=== PATIENT | male | born 1945 | race Caucasian/White ===

== ENCOUNTER 2021-01-28 11:36 | Inpatient (IN) | payer MEDICARE, OTHER ==
[2021-01-28] MEDS ORDERED: Sodium Chloride 0.9% 10 ML Syringe FLUSH PRN (12:17)
[2021-01-28] MEDS ORDERED: Sodium Chloride 0.9% 1,000 ML IV STA ×2 (12:25→13:50)
--- NOTE | 2021-01-28 12:34 | EDM.PDOC ---
ED HPI GENERAL MEDICAL PROBLEM - General Chief Complaint: Gastrointestinal Problem Stated Complaint: RECTAL BLEEDING Time Seen by Provider: 01/28/21 12:16 Source of Information: Reports: Patient, RN Notes Reviewed History Limitations: Reports: No Limitations - History of Present Illness INITIAL COMMENTS - FREE TEXT/NARRATIVE: Patient is a 75-year-old male presenting to the emergency department for evaluation with regards to having 2 very large episodes of bright red bloody stool. Symptoms began about 6 AM this morning. He is traveling through on his way home to [place] from [place]. States that he stopped in [place] which is about an hour and a half from here and this is when he had his last episode of bloody stool. He denies any abdominal pain but states that he is feeling increasingly weak and has some shortness of breath with exertion. He reports a history of diverticulosis. He has had 2 other episodes of bloody stools, however these resolved on their own. He states that he did not seek medical treatment for these. This episode is worse than the previous and he is concerned with regards to his weakness. His last colonoscopy was 6 to 7 years ago and at that time he was found to have the diverticulosis. He denies any abdominal pain, chest pain, fever, chills, nausea, or vomiting. He is currently on Plavix and aspirin for history of [place]. - Related Data Allergies Allergy/AdvReac Type Severity Reaction Status Date / Time No Known Allergies Allergy Verified 01/28/21 11:56 Home Meds: Home Meds Aspirin 81 mg PO DAILY 01/28/21 [History] Clopidogrel [Plavix] 75 mg PO DAILY 01/28/21 [History] Losartan Potassium 50 mg PO BEDTIME 01/28/21 [History] Nitroglycerin [Nitrostat] 0.4 mg SL ASDIRECTED PRN 01/28/21 [History] Simvastatin 40 mg PO BEDTIME 01/28/21 [History] Past Medical History Cardiovascular History: Reports: [place] Gastrointestinal History: Reports: Diverticulosis - Past Surgical History Cardiovascular Surgical History: Reports: Carotid Stents Social & Family History - Tobacco Use Tobacco Use Status *Q: Never Tobacco User - Recreational Drug Use Recreational Drug Use: No ED ROS GENERAL - Review of Systems Review Of Systems: See Below Constitutional: Reports: Weakness, Fatigue HEENT: Reports: No Symptoms Respiratory: Reports: No Symptoms Cardiovascular: Reports: No Symptoms. Denies: Chest Pain, Lightheadedness, Palpitations Endocrine: Reports: No Symptoms GI/Abdominal: Reports: Melena. Denies: Abdominal Pain, Nausea, Vomiting : Reports: No Symptoms Musculoskeletal: Reports: No Symptoms Skin: Reports: No Symptoms Neurological: Reports: No Symptoms Psychiatric: Reports: No Symptoms Hematologic/Lymphatic: Reports: No Symptoms Immunologic: Reports: No Symptoms ED EXAM, GI/ABD - Physical Exam Exam: See Below Exam Limited By: No Limitations General Appearance: Alert, WD/WN, No Apparent Distress Respiratory/Chest: No Respiratory Distress, Lungs Clear, Normal Breath Sounds, No Accessory Muscle Use, Chest Non-Tender Cardiovascular: Normal Peripheral Pulses, Regular Rate, Rhythm, No Edema, No Gallop, No JVD, No Murmur, No Rub GI/Abdominal Exam: Normal Bowel Sounds, Soft, Non-Tender, No Organomegaly, No Distention, No Abnormal Bruit, No Mass, Pelvis Stable Neurological: Alert, Oriented, CN II-XII Intact, Normal Cognition, Normal Gait, Normal Reflexes, No Motor/Sensory Deficits Psychiatric: Normal Affect, Normal Mood Skin Exam: Warm, Dry, Intact, Normal Color, No Rash #1 Interpretation EKG Date: 01/28/21 Time: 13:08 Rhythm: NSR Rate (Beats/Min): 77 [place]: Normal P-Wave: Present QRS: Normal ST-T: Normal QT: Normal EKG Interpretation Comments: Sinus rhythm at 77/min Poor R wave progression T wave flattening aVL, 3, V4, and V5-nonspecific Mildly decreased voltage limb leads EKG interpreted by Dr. Tony ROBERSON Course - Vital Signs Last Recorded V/S: Last Vital Signs Temp 97.5 F 01/28/21 14:27 Pulse 75 01/28/21 14:27 Resp 16 01/28/21 14:27 BP 134/87 01/28/21 14:27 Pulse Ox 99 01/28/21 14:43 Orthostatic Blood Pressure [ 50/26 Standing] Orthostatic Blood Pressure [ 116/75 Sitting] Orthostatic Blood Pressure [ 128/97 Supine] - Orders/Labs/Meds Orders: Active Orders 24 hr Category Date Time Status EKG Documentation Completion [RC] STAT Care 01/28/21 12:53 Active Orthostatic Vital Signs [RC] ASDIRECTED Care 01/28/21 12:28 Active Peripheral IV Care [RC] . DIRECTED Care 01/28/21 12:17 Active RED BLOOD CELLS LP [BBK] Stat Lab 01/28/21 12:05 Results TYPE AND SCREEN [BBK] Stat Lab 01/28/21 12:05 Results Sodium Chloride 0.9% [Saline Flush] Med 01/28/21 12:17 Active 10 ml FLUSH ASDIRECTED PRN Peripheral IV Insertion Adult [OM.PC] Stat Oth 01/28/21 12:16 Ordered Medication Orders Sodium Chloride (Normal Saline) 1,000 mls @ 125 mls/hr IV NOW STA Stop: 01/28/21 21:49 Last Admin: 01/28/21 14:10 Dose: 125 mls/hr Documented by: AUBRIE Sodium Chloride (Normal Saline) 1,000 mls @ 150 mls/hr IV ASDIRECTED SENAIT Sodium Chloride (Sodium Chloride 0.9% 10 Ml Syringe) 10 ml FLUSH ASDIRECTED PRN PRN Reason: Keep Vein Open Last Admin: 01/28/21 12:05 Dose: 10 ml Documented by: DHRUV Labs: Laboratory Tests 01/28/21 01/28/21 01/28/21 Range/Units 12:05 12:05 12:05 WBC 8.92 (4.23-9.07) K/mm3 RBC 4.37 L (4.63-6.08) M/mm3 Hgb 12.8 L (13.7-17.5) gm/dl Hct 38.4 L (40.1-51.0) % MCV 87.9 (79.0-92.2) fl MCH 29.3 (25.7-32.2) pg MCHC 33.3 (32.2-35.5) g/dl RDW Std Deviation 42.1 (35.1-43.9) fL Plt Count 226 (163-337) K/mm3 MPV 9.4 (9.4-12.3) fl Neut % (Auto) 88.4 H (34.0-67.9) % Lymph % (Auto) 5.7 L (21.8-53.1) % [place] % (Auto) 4.7 L (5.3-12.2) % Eos % (Auto) 0.8 (0.8-7.0) Baso % (Auto) 0.3 (0.1-1.2) % Neut # (Auto) 7.88 H (1.78-5.38) K/mm3 Lymph # (Auto) 0.51 L (1.32-3.57) K/mm3 [place] # (Auto) 0.42 (0.30-0.82) K/mm3 Eos # (Auto) 0.07 (0.04-0.54) K/mm3 Baso # (Auto) 0.03 (0.01-0.08) K/mm3 Manual Slide Review Abnormal smear PT 11.3 (9.7-12.0) SECONDS INR 1.06 APTT (21.7-31.4) SECONDS Sodium 141 (136-145) mEq/L Potassium 4.1 (3.5-5.1) mEq/L Chloride 107 (98-107) mEq/L Carbon Dioxide 25 (21-32) mEq/L Anion Gap 12.1 (5-15) BUN 16 (7-18) mg/dL Creatinine 1.8 H (0.7-1.3) mg/dL Est Cr Clr Drug Dosing 38.84 mL/min Estimated GFR (MDRD) 37 (>60) mL/min BUN/Creatinine Ratio 8.9 L (14-18) Glucose 175 H (83-115) mg/dL Calcium 8.5 (8.5-10.1) mg/dL Total Bilirubin 0.6 (0.2-1.0) mg/dL AST 14 L (15-37) U/L ALT 23 (16-63) U/L Alkaline Phosphatase 52 (46-116) U/L Troponin I < 0.017 (0.00-0.056) ng/mL C-Reactive Protein < 0.2 (<1.0) mg/dL Total Protein 6.1 L (6.4-8.2) g/dl Albumin 3.6 (3.4-5.0) g/dl Globulin 2.5 gm/dL Albumin/Globulin Ratio 1.4 (1-2) SARS-CoV-2 RNA (YONI) (NEGATIVE) Blood Type Gel Antibody Screen Crossmatch 01/28/21 01/28/21 01/28/21 Range/Units 12:05 12:05 12:33 WBC (4.23-9.07) K/mm3 RBC (4.63-6.08) M/mm3 Hgb (13.7-17.5) gm/dl Hct (40.1-51.0) % MCV (79.0-92.2) fl MCH (25.7-32.2) pg MCHC (32.2-35.5) g/dl RDW Std Deviation (35.1-43.9) fL Plt Count (163-337) K/mm3 MPV (9.4-12.3) fl Neut % (Auto) (34.0-67.9) % Lymph % (Auto) (21.8-53.1) % [place]ay % (Auto) (5.3-12.2) % Eos % (Auto) (0.8-7.0) Baso % (Auto) (0.1-1.2) % Neut # (Auto) (1.78-5.38) K/mm3 Lymph # (Auto) (1.32-3.57) K/mm3 [place] # (Auto) (0.30-0.82) K/mm3 Eos # (Auto) (0.04-0.54) K/mm3 Baso # (Auto) (0.01-0.08) K/mm3 Manual Slide Review PT (9.7-12.0) SECONDS INR APTT 21.5 L (21.7-31.4) SECONDS Sodium (136-145) mEq/L Potassium (3.5-5.1) mEq/L Chloride (98-107) mEq/L Carbon Dioxide (21-32) mEq/L Anion Gap (5-15) BUN (7-18) mg/dL Creatinine (0.7-1.3) mg/dL Est Cr Clr Drug Dosing mL/min Estimated GFR (MDRD) (>60) mL/min BUN/Creatinine Ratio (14-18) Glucose (83-115) mg/dL Calcium (8.5-10.1) mg/dL Total Bilirubin (0.2-1.0) mg/dL AST (15-37) U/L ALT (16-63) U/L Alkaline Phosphatase (46-116) U/L Troponin I (0.00-0.056) ng/mL C-Reactive Protein (<1.0) mg/dL Total Protein (6.4-8.2) g/dl Albumin (3.4-5.0) g/dl Globulin gm/dL Albumin/Globulin Ratio (1-2) SARS-CoV-2 RNA (YONI) Negative (NEGATIVE) Blood Type O POSITIVE Gel Antibody Screen Negative Crossmatch See Detail Meds: Medications Generic Name Dose Route Start Last Admin Trade Name Abel PRN Reason Stop Dose Admin Sodium Chloride 1,000 mls @ 125 mls/hr 01/28/21 13:50 01/28/21 14:10 Normal Saline IV 01/28/21 21:49 125 mls/hr NOW STA Administration Sodium Chloride 1,000 mls @ 150 mls/hr 01/28/21 18:00 Normal Saline IV ASDIRECTED SENAIT Sodium Chloride 10 ml 01/28/21 12:17 01/28/21 12:05 Sodium Chloride 0.9% 10 Ml Syringe FLUSH 10 ml ASDIRECTED PRN Administration Keep Vein Open Discontinued Medications Generic Name Dose Route Start Last Admin Trade Name Abel PRN Reason Stop Dose Admin Sodium Chloride 1,000 mls @ 999 mls/hr 01/28/21 12:25 01/28/21 12:38 Normal Saline IV 01/28/21 13:25 125 mls/hr NOW STA Administration Sodium Chloride 1,000 mls @ 250 mls/hr 01/28/21 14:56 01/28/21 15:45 Normal Saline IV 01/28/21 18:55 Not Given ONETIME ONE - Re-Assessments/Exams Free Text/Narrative Re-Assessment/Exam: Patient is a 75-year-old male presenting to the emergency department for evaluation with regards to having 2 large james red bloody stools this morning. He reports subsequently he became weak and short of breath with exertion. He d enies any abdominal pain, chest pain, or shortness of breath at rest. Patient reports that he has a history of diverticulosis which was diagnosed on colonoscopy 6 to 7 years ago. He has not had any colonoscopy repeated since that time. He reports a history of 2 previous GI bleeds that resolved spontaneously and he did not seek medical treatment for these. Exam is grossly unremarkable. He has no abdominal tenderness. I have ordered blood work including CBC, CMP, CRP, PT/INR, APTT, troponin, urinalysis, orthostatic vital signs. Blood pressures on triage were stable. I will start IV fluids of normal saline at 125 ml/hr. 01/28/21 12:30 Patient was found to be severely orthostatic. Blood pressure decreased from 120/97 with a pulse of 77 lying to 50/26 with a pulse of 105. I have ordered a bolus of 1 L of normal saline. 01/28/21 13:26 Hematology was significant for a hemoglobin slightly low at 12.8 and creatinine elevated at 1.8. Hematology was otherwise unremarkable. Patient is significantly volume depleted, therefore once replaced the volume with fluids, his hemoglobin is likely going to drop significantly. Case was discussed with general surgeon on-call, Dr. Manley. She recommended admission under medical services for monitoring and supportive care to see if the bleeding improves or resolves. She will see him in consult. Case was discussed with hospitalist, Dr. De La Rosa. He has accepted the patient for admission. Requested 2 units of packed RBCs to be crossmatched. Patient is in agreement with this plan. Departure - Departure Time of Disposition: 13:26 Disposition: Admitted As Inpatient 64 Condition: Good Clinical Impression: Hypotension due to blood loss, Rectal hemorrhage - Discharge Information Sepsis Event Note (ED) - Evaluation Sepsis Screening Result: No Definite Risk - Focused Exam Vital Signs: Vital Signs Temp Pulse Resp BP Pulse Ox 01/28/21 11:53 98.4 F 90 16 129/89 99 - My Orders Last 24 Hours: My Active Orders 01/28/21 12:05 RED BLOOD CELLS LP [BBK] Stat TYPE AND SCREEN [BBK] Stat 01/28/21 12:16 Peripheral IV Insertion Adult [OM.PC] Stat 01/28/21 12:17 Peripheral IV Care [RC] . DIRECTED Sodium Chloride 0.9% [Saline Flush] 10 ml FLUSH ASDIRECTED PRN 01/28/21 12:28 Orthostatic Vital Signs [RC] ASDIRECTED 01/28/21 12:53 EKG Documentation Completion [RC] STAT - Assessment/Plan Last 24 Hours: My Active Orders 01/28/21 12:05 RED BLOOD CELLS LP [BBK] Stat TYPE AND SCREEN [BBK] Stat 01/28/21 12:16 Peripheral IV Insertion Adult [OM.PC] Stat 01/28/21 12:17 Peripheral IV Care [RC] . DIRECTED Sodium Chloride 0.9% [Saline Flush] 10 ml FLUSH ASDIRECTED PRN 01/28/21 12:28 Orthostatic Vital Signs [RC] ASDIRECTED 01/28/21 12:53 EKG Documentation Completion [RC] STAT
--- NOTE | 2021-01-28 14:25 | PCM.HP.2 ---
H&P History of Present Illness - General Date of Service: 01/28/21 Admit Problem/Dx: Admission Diagnosis/Problem Admission Diagnosis/Problem GI bleed not requiring more than 4 units of blood in 24 hours, ICU, or surgery Source of Information: Patient, Family, Provider History Limitations: Reports: No Limitations - History of Present Illness Initial Comments - Free Text/Narative: Patient is a 75-year-old male presenting to the emergency department for evaluation with regards to having 2 very large episodes of bright red bloody stool. Symptoms began about 6 AM this morning. He is traveling through on his way home to [place] from [place]. States that he stopped in [place] which is about an hour and a half from here and this is when he had his last episode of bloody stool. He denies any abdominal pain but states that he is feeling increasingly weak and has some shortness of breath with exertion. He reports a history of diverticulosis. He has had 2 other episodes of bloody stools, however these resolved on their own. He states that he did not seek medical treatment for these. This episode is worse than the previous and he is concerned with regards to his weakness. His last colonoscopy was 6 to 7 years ago and at that time he was found to have the diverticulosis. He denies any abdominal pain, chest pain, fever, chills, nausea, or vomiting. He is currently on Plavix and aspirin for history of [place]. Patient does not have any hx of colon polyps known and did have cologard test 2 years ago. hx of mild bruising and no other recent bleeds. known anterior mi with decreased e.f now back to near normal functionally he states. no hx of afib cva or p.e,low platlets or chronic anemia . no hx of intracranial bleeding. remote mild hx of smoking but no copd . otherwise healthy . no dementia ,cancer and minimal prostate issues (bph) no hx of hepatitis ,drug use , increased etoh use. - Related Data Allergies Allergy/AdvReac Type Severity Reaction Status Date / Time No Known Allergies Allergy Verified 01/28/21 11:56 Home Meds: Home Meds Aspirin 81 mg PO DAILY 01/28/21 [History] Clopidogrel [Plavix] 75 mg PO DAILY 01/28/21 [History] Losartan Potassium 50 mg PO BEDTIME 01/28/21 [History] Nitroglycerin [Nitrostat] 0.4 mg SL ASDIRECTED PRN 01/28/21 [History] Simvastatin 40 mg PO BEDTIME 01/28/21 [History] Onset of Symptoms: Reports: Today Duration of Symptoms: Reports: Hour(s): (8) Location: Reports: Abdomen Quality: Reports: Other (no abd pain ) Improves with: Reports: None Worsens with: Reports: None Context: Denies: Sick Contact Associated Symptoms: Denies: No Other Symptoms - Related Data Allergies/Adverse Reactions: Allergies Allergy/AdvReac Type Severity Reaction Status Date / Time No Known Allergies Allergy Verified 01/28/21 11:56 Home Medications: Home Meds Aspirin 81 mg PO DAILY 01/28/21 [History] Clopidogrel [Plavix] 75 mg PO DAILY 01/28/21 [History] Losartan Potassium 50 mg PO BEDTIME 01/28/21 [History] Nitroglycerin [Nitrostat] 0.4 mg SL ASDIRECTED PRN 01/28/21 [History] Simvastatin 40 mg PO BEDTIME 01/28/21 [History] Past Medical History Cardiovascular History: Reports: CAD, [place]. Denies: Afib, Aneurysm, Arrhythmia, Blood Clots/VTE/DVT, Heart Failure, Heart Murmur Gastrointestinal History: Reports: Diverticulosis Musculoskeletal History: Reports: Osteoarthritis Neurological History: Reports: None Psychiatric History: Reports: None Endocrine/Metabolic History: Reports: None Hematologic History: Reports: None Oncologic (Cancer) History: Reports: None Dermatologic History: Reports: None - Infectious Disease History Infectious Disease History: Reports: None - Past Surgical History Cardiovascular Surgical History: Reports: Carotid Stents Social & Family History - Tobacco Use Tobacco Use Status *Q: Never Tobacco User - Recreational Drug Use Recreational Drug Use: No - Living Situation & Occupation Living situation: Reports: H&P Review of Systems - Review of Systems: Review Of Systems: See Below General: Reports: No Symptoms Pulmonary: Reports: Shortness of Breath Cardiovascular: Reports: No Symptoms. Denies: Chest Pain Gastrointestinal: Reports: Bloody Stool. Denies: Abdominal Pain, Anorexia, Black Stool, Hematochezia Genitourinary: Reports: Frequency Musculoskeletal: Reports: No Symptoms Skin: Reports: No Symptoms Psychiatric: Reports: No Symptoms Neurological: Reports: No Symptoms Hematologic/Lymphatic: Reports: No Symptoms Immunologic: Reports: No Symptoms Exam - Exam Exam: See Below - Vital Signs Vital Signs: Last Vital Signs Temp 36.9 C 01/28/21 11:53 Pulse 90 01/28/21 11:53 Resp 16 01/28/21 11:53 BP 129/89 01/28/21 11:53 Pulse Ox 99 01/28/21 11:53 Orthostatic Blood Pressure [ 50/26 Standing] Orthostatic Blood Pressure [ 116/75 Sitting] Orthostatic Blood Pressure [ 128/97 Supine] Weight: 94.347 kg - Exam General: Alert, Oriented, Cooperative HEENT: PERRLA, Hearing Intact, Mucosa Moist & [place], Nares Patent, Normal Nasal Septum, Posterior Pharynx Clear, Conjunctiva Clear, EOMI, EACs Clear, TMs Clear Neck: Supple, Trachea Midline, 2 Lungs: Clear to Auscultation, Normal Respiratory Effort Cardiovascular: Regular Rate, Regular Rhythm GI/Abdominal Exam: Normal Bowel Sounds, Soft, Non-Tender, No Organomegaly, No Distention, No Abnormal Bruit, No Mass, Pelvis Stable (Male) Exam: Deferred Rectal (Males) Exam: Deferred Back Exam: Normal Inspection Extremities: Normal Inspection Peripheral Pulses: 1+: Carotid (L), Carotid (R) Skin: Warm, Dry, Intact, Ecchymosis (few normal appearing ecchymosis) Neurological: Cranial Nerves Intact, Reflexes Equal Bilateral Neuro Extensive - Mental Status: Alert, Oriented x3, Normal Mood/Affect, Normal Cognition Neuro Extensive - Motor, Sensory, Reflexes: CN II-XII Intact, Normal Gait, Normal Reflexes Psychiatric: Alert, Normal Affect, Normal Mood - Patient Data Lab Results Last 24 hrs: Laboratory Results - last 24 hr 01/28/21 01/28/21 01/28/21 Range/Units 12:05 12:05 12:05 WBC 8.92 (4.23-9.07) K/mm3 RBC 4.37 L (4.63-6.08) M/mm3 Hgb 12.8 L (13.7-17.5) gm/dl Hct 38.4 L (40.1-51.0) % MCV 87.9 (79.0-92.2) fl MCH 29.3 (25.7-32.2) pg MCHC 33.3 (32.2-35.5) g/dl RDW Std Deviation 42.1 (35.1-43.9) fL Plt Count 226 (163-337) K/mm3 MPV 9.4 (9.4-12.3) fl Neut % (Auto) 88.4 H (34.0-67.9) % Lymph % (Auto) 5.7 L (21.8-53.1) % [place] % (Auto) 4.7 L (5.3-12.2) % Eos % (Auto) 0.8 (0.8-7.0) Baso % (Auto) 0.3 (0.1-1.2) % Neut # (Auto) 7.88 H (1.78-5.38) K/mm3 Lymph # (Auto) 0.51 L (1.32-3.57) K/mm3 [place] # (Auto) 0.42 (0.30-0.82) K/mm3 Eos # (Auto) 0.07 (0.04-0.54) K/mm3 Baso # (Auto) 0.03 (0.01-0.08) K/mm3 Manual Slide Review Abnormal smear PT 11.3 (9.7-12.0) SECONDS INR 1.06 APTT (21.7-31.4) SECONDS Sodium 141 (136-145) mEq/L Potassium 4.1 (3.5-5.1) mEq/L Chloride 107 (98-107) mEq/L Carbon Dioxide 25 (21-32) mEq/L Anion Gap 12.1 (5-15) BUN 16 (7-18) mg/dL Creatinine 1.8 H (0.7-1.3) mg/dL Est Cr Clr Drug Dosing 38.84 mL/min Estimated GFR (MDRD) 37 (>60) mL/min BUN/Creatinine Ratio 8.9 L (14-18) Glucose 175 H (83-115) mg/dL Calcium 8.5 (8.5-10.1) mg/dL Total Bilirubin 0.6 (0.2-1.0) mg/dL AST 14 L (15-37) U/L ALT 23 (16-63) U/L Alkaline Phosphatase 52 (46-116) U/L Troponin I < 0.017 (0.00-0.056) ng/mL C-Reactive Protein < 0.2 (<1.0) mg/dL Total Protein 6.1 L (6.4-8.2) g/dl Albumin 3.6 (3.4-5.0) g/dl Globulin 2.5 gm/dL Albumin/Globulin Ratio 1.4 (1-2) SARS-CoV-2 RNA (YONI) (NEGATIVE) Blood Type Gel Antibody Screen Crossmatch 01/28/21 01/28/21 01/28/21 Range/Units 12:05 12:05 12:33 WBC (4.23-9.07) K/mm3 RBC (4.63-6.08) M/mm3 Hgb (13.7-17.5) gm/dl Hct (40.1-51.0) % MCV (79.0-92.2) fl MCH (25.7-32.2) pg MCHC (32.2-35.5) g/dl RDW Std Deviation (35.1-43.9) fL Plt Count (163-337) K/mm3 MPV (9.4-12.3) fl Neut % (Auto) (34.0-67.9) % Lymph % (Auto) (21.8-53.1) % [place] % (Auto) (5.3-12.2) % Eos % (Auto) (0.8-7.0) Baso % (Auto) (0.1-1.2) % Neut # (Auto) (1.78-5.38) K/mm3 Lymph # (Auto) (1.32-3.57) K/mm3 [place] # (Auto) (0.30-0.82) K/mm3 Eos # (Auto) (0.04-0.54) K/mm3 Baso # (Auto) (0.01-0.08) K/mm3 Manual Slide Review PT (9.7-12.0) SECONDS INR APTT 21.5 L (21.7-31.4) SECONDS Sodium (136-145) mEq/L Potassium (3.5-5.1) mEq/L Chloride (98-107) mEq/L Carbon Dioxide (21-32) mEq/L Anion Gap (5-15) BUN (7-18) mg/dL Creatinine (0.7-1.3) mg/dL Est Cr Clr Drug Dosing mL/min Estimated GFR (MDRD) (>60) mL/min BUN/Creatinine Ratio (14-18) Glucose (83-115) mg/dL Calcium (8.5-10.1) mg/dL Total Bilirubin (0.2-1.0) mg/dL AST (15-37) U/L ALT (16-63) U/L Alkaline Phosphatase (46-116) U/L Troponin I (0.00-0.056) ng/mL C-Reactive Protein (<1.0) mg/dL Total Protein (6.4-8.2) g/dl Albumin (3.4-5.0) g/dl Globulin gm/dL Albumin/Globulin Ratio (1-2) SARS-CoV-2 RNA (YONI) Negative (NEGATIVE) Blood Type O POSITIVE Gel Antibody Screen Negative Crossmatch See Detail Result Diagrams: 01/28/21 12:05 01/28/21 12:05 Sepsis Event Note - Evaluation Sepsis Screening Result: No Definite Risk - Focused Exam Vital Signs: Vital Signs Temp Pulse Resp BP Pulse Ox 01/28/21 11:53 36.9 C 90 16 129/89 99 - Problem List (1) Rectal hemorrhage SNOMED Code(s): 69062228 ICD Code: K62.5 - HEMORRHAGE OF ANUS AND RECTUM Status: Acute Priority: High Current Visit: Yes Onset Date: ~01/28/21 Problem Details: initial e.r hgn 11.7 and gibven i.v x 2 liters for orthostsis and will repeat hgn every 4-6 hours. he would like to get home [place]s.p. and discussed stopping plavix and asa and observing next few days . consult gen surgery if bleeding continues. (2) CAD (coronary atherosclerotic disease) SNOMED Code(s): 369829030 ICD Code: I25.10 - ATHSCL HEART DISEASE OF [place] CORONARY ARTERY W/O ANG PCTRS Status: Acute Priority: Medium Current Visit: Yes Onset Date: ~01/28/21 Problem Details: ekg reviewed and no acute findings, occasional verification manager and will avoid hypotension and severe anemia . type and screened for 2 units given he is on plavix and asa and has previous bleeds x 2. given slow reversal of these agents observation and repeat hgn with orthostatic b.p in order. Qualifiers: Coronary Disease-Associated Artery/Lesion type: due to lipid rich plaque Qualified Code(s): I25.10 - Atherosclerotic heart disease of [place] coronary artery without angina pectoris; I25.83 - Coronary atherosclerosis due to lipid rich plaque (3) Hypotension due to blood loss SNOMED Code(s): 70018545 ICD Code: I95.89 - OTHER HYPOTENSION Status: Acute Priority: Medium Current Visit: Yes Onset Date: ~01/28/21 Problem Details: b.p normal currently but orthostatic on presentation with dizziness and [place]. (4) MEYERS (dyspnea on exertion) SNOMED Code(s): 53018928 ICD Code: R06.00 - DYSPNEA, UNSPECIFIED Status: Acute Priority: Medium Current Visit: Yes Onset Date: ~01/28/21 Problem Details: mild sats 96- 100 currently Problem List Initiated/Reviewed/Updated: Yes Orders Last 24hrs: Active Orders 24 hr Category Date Time Status Patient Status [ADT] Routine ADT 01/28/21 13:41 Active EKG Documentation Completion [RC] STAT Care 01/28/21 12:53 Active Orthostatic Vital Signs [RC] ASDIRECTED Care 01/28/21 12:28 Active Peripheral IV Care [RC] . DIRECTED Care 01/28/21 12:17 Active PATIENT RETYPE [BBK] Routine Lab 01/28/21 13:22 Ordered RED BLOOD CELLS LP [BBK] Stat Lab 01/28/21 12:05 Results TYPE AND SCREEN [BBK] Stat Lab 01/28/21 12:05 Results UA W/MICROSCOPIC [URIN] Stat Lab 01/28/21 12:16 Ordered Sodium Chloride 0.9% [Normal Saline] 1,000 ml Med 01/28/21 13:50 Active IV NOW Sodium Chloride 0.9% [Saline Flush] Med 01/28/21 12:17 Active 10 ml FLUSH ASDIRECTED PRN Peripheral IV Insertion Adult [OM.PC] Stat Oth 01/28/21 12:16 Ordered Medication Orders Sodium Chloride (Normal Saline) 1,000 mls @ 125 mls/hr IV NOW STA Stop: 01/28/21 21:49 Last Admin: 01/28/21 14:10 Dose: 125 mls/hr Documented by: AUBRIE Sodium Chloride (Sodium Chloride 0.9% 10 Ml Syringe) 10 ml FLUSH ASDIRECTED PRN PRN Reason: Keep Vein Open Last Admin: 01/28/21 12:05 Dose: 10 ml Documented by: DHRUV Assessment/Plan Comment:: 01/28/21 plan: admit / observe and serial hgn with attn to vs. stop plavix and asa and discussed with duaghter and patient and they agree. cont n.p.o . for now. surgery consult . diverticular eval when stable , preferably with his hometown [facility] - Mortality Measure Prognosis:: Good
[2021-01-28] MEDS ORDERED: Sodium Chloride 0.9% 1,000 ML IV ONE (14:56)
--- NOTE | 2021-01-28 15:45 | PCM.CONS ---
H&P History of Present Illness - General Date of Service: 01/28/21 Admit Problem/Dx: Admission Diagnosis/Problem Admission Diagnosis/Problem GI bleed not requiring more than 4 units of blood in 24 hours, ICU, or surgery Source of Information: Patient, Provider - History of Present Illness Initial Comments - Free Text/Narative: 75 y/o gentleman presents to the ED with GI bleed. He reports having two large, bloody bowel movements today, after which he felt very weak. He reports having two prior events of GI bleed within the last 18 months. His last colonoscopy was 6-7 years ago, maybe longer. He reports having previously diagnosed diverticulosis. He has not had any follow up colonoscopy since the bleeding episodes started. He would like to go home to the [facility] for colonoscopy evaluation if possible. He denies abdominal pain. - Related Data Allergies/Adverse Reactions: Allergies Allergy/AdvReac Type Severity Reaction Status Date / Time No Known Allergies Allergy Verified 01/28/21 11:56 Home Medications: Home Meds Aspirin 81 mg PO DAILY 01/28/21 [History] Clopidogrel [Plavix] 75 mg PO DAILY 01/28/21 [History] Losartan Potassium 50 mg PO BEDTIME 01/28/21 [History] Nitroglycerin [Nitrostat] 0.4 mg SL ASDIRECTED PRN 01/28/21 [History] Simvastatin 40 mg PO BEDTIME 01/28/21 [History] Past Medical History HEENT History: Reports: Cataract Cardiovascular History: Reports: CAD, ND. Denies: Afib, Aneurysm, Arrhythmia, Blood Clots/VTE/DVT, Heart Failure, Heart Murmur Gastrointestinal History: Reports: Diverticulosis, GI Bleed Musculoskeletal History: Reports: Osteoarthritis Neurological History: Reports: None Psychiatric History: Reports: None Endocrine/Metabolic History: Reports: None Hematologic History: Reports: None Oncologic (Cancer) History: Reports: None Dermatologic History: Reports: None - Infectious Disease History Infectious Disease History: Reports: None - Past Surgical History Cardiovascular Surgical History: Reports: Carotid Stents Social & Family History - Family History Cardiac: Reports: CAD - Tobacco Use Tobacco Use Status *Q: Never Tobacco User Second Hand Smoke Exposure: No - Caffeine Use Caffeine Use: Reports: Coffee, Tea - Recreational Drug Use Recreational Drug Use: No - Living Situation & Occupation Living situation: Reports: H&P Review of Systems - Review of Systems: Review Of Systems: See Below General: Reports: Weakness HEENT: Reports: No Symptoms Pulmonary: Reports: Shortness of Breath Cardiovascular: Reports: No Symptoms Gastrointestinal: Reports: Bloody Stool Genitourinary: Reports: No Symptoms Musculoskeletal: Reports: No Symptoms Skin: Reports: No Symptoms Neurological: Reports: No Symptoms Hematologic/Lymphatic: Reports: No Symptoms Exam - Exam Exam: See Below - Vital Signs Vital Signs: Last Vital Signs Temp 36.4 C 01/28/21 14:27 Pulse 75 01/28/21 14:27 Resp 16 01/28/21 14:27 BP 134/87 01/28/21 14:27 Pulse Ox 99 01/28/21 14:27 Orthostatic Blood Pressure [ 50/26 Standing] Orthostatic Blood Pressure [ 116/75 Sitting] Orthostatic Blood Pressure [ 128/97 Supine] Weight: 94.347 kg - Exam Quality Assessment: No: Supplemental Oxygen General: Alert, Oriented HEENT: EOMI Neck: Supple Lungs: Normal Respiratory Effort GI/Abdominal Exam: Soft, Non-Tender, No Distention Extremities: Normal Inspection, No Pedal Edema Peripheral Pulses: 2+: Dorsalis Pedis (L), Dorsalis Pedis (R) Neurological: Cranial Nerves Intact Neuro Extensive - Mental Status: Normal Mood/Affect - Patient Data Lab Results Last 24 hrs: Laboratory Results - last 24 hr 01/28/21 01/28/21 01/28/21 Range/Units 12:05 12:05 12:05 WBC 8.92 (4.23-9.07) K/mm3 RBC 4.37 L (4.63-6.08) M/mm3 Hgb 12.8 L (13.7-17.5) gm/dl Hct 38.4 L (40.1-51.0) % MCV 87.9 (79.0-92.2) fl MCH 29.3 (25.7-32.2) pg MCHC 33.3 (32.2-35.5) g/dl RDW Std Deviation 42.1 (35.1-43.9) fL Plt Count 226 (163-337) K/mm3 MPV 9.4 (9.4-12.3) fl Neut % (Auto) 88.4 H (34.0-67.9) % Lymph % (Auto) 5.7 L (21.8-53.1) % [place] % (Auto) 4.7 L (5.3-12.2) % Eos % (Auto) 0.8 (0.8-7.0) Baso % (Auto) 0.3 (0.1-1.2) % Neut # (Auto) 7.88 H (1.78-5.38) K/mm3 Lymph # (Auto) 0.51 L (1.32-3.57) K/mm3 [place] # (Auto) 0.42 (0.30-0.82) K/mm3 Eos # (Auto) 0.07 (0.04-0.54) K/mm3 Baso # (Auto) 0.03 (0.01-0.08) K/mm3 Manual Slide Review Abnormal smear PT 11.3 (9.7-12.0) SECONDS INR 1.06 APTT (21.7-31.4) SECONDS Sodium 141 (136-145) mEq/L Potassium 4.1 (3.5-5.1) mEq/L Chloride 107 (98-107) mEq/L Carbon Dioxide 25 (21-32) mEq/L Anion Gap 12.1 (5-15) BUN 16 (7-18) mg/dL Creatinine 1.8 H (0.7-1.3) mg/dL Est Cr Clr Drug Dosing 38.84 mL/min Estimated GFR (MDRD) 37 (>60) mL/min BUN/Creatinine Ratio 8.9 L (14-18) Glucose 175 H (83-115) mg/dL Calcium 8.5 (8.5-10.1) mg/dL Total Bilirubin 0.6 (0.2-1.0) mg/dL AST 14 L (15-37) U/L ALT 23 (16-63) U/L Alkaline Phosphatase 52 (46-116) U/L Troponin I < 0.017 (0.00-0.056) ng/mL C-Reactive Protein < 0.2 (<1.0) mg/dL Total Protein 6.1 L (6.4-8.2) g/dl Albumin 3.6 (3.4-5.0) g/dl Globulin 2.5 gm/dL Albumin/Globulin Ratio 1.4 (1-2) SARS-CoV-2 RNA (YONI) (NEGATIVE) Blood Type Gel Antibody Screen Crossmatch 01/28/21 01/28/21 01/28/21 Range/Units 12:05 12:05 12:33 WBC (4.23-9.07) K/mm3 RBC (4.63-6.08) M/mm3 Hgb (13.7-17.5) gm/dl Hct (40.1-51.0) % MCV (79.0-92.2) fl MCH (25.7-32.2) pg MCHC (32.2-35.5) g/dl RDW Std Deviation (35.1-43.9) fL Plt Count (163-337) K/mm3 MPV (9.4-12.3) fl Neut % (Auto) (34.0-67.9) % Lymph % (Auto) (21.8-53.1) % [place] % (Auto) (5.3-12.2) % Eos % (Auto) (0.8-7.0) Baso % (Auto) (0.1-1.2) % Neut # (Auto) (1.78-5.38) K/mm3 Lymph # (Auto) (1.32-3.57) K/mm3 [place] # (Auto) (0.30-0.82) K/mm3 Eos # (Auto) (0.04-0.54) K/mm3 Baso # (Auto) (0.01-0.08) K/mm3 Manual Slide Review PT (9.7-12.0) SECONDS INR APTT 21.5 L (21.7-31.4) SECONDS Sodium (136-145) mEq/L Potassium (3.5-5.1) mEq/L Chloride (98-107) mEq/L Carbon Dioxide (21-32) mEq/L Anion Gap (5-15) BUN (7-18) mg/dL Creatinine (0.7-1.3) mg/dL Est Cr Clr Drug Dosing mL/min Estimated GFR (MDRD) (>60) mL/min BUN/Creatinine Ratio (14-18) Glucose (83-115) mg/dL Calcium (8.5-10.1) mg/dL Total Bilirubin (0.2-1.0) mg/dL AST (15-37) U/L ALT (16-63) U/L Alkaline Phosphatase (46-116) U/L Troponin I (0.00-0.056) ng/mL C-Reactive Protein (<1.0) mg/dL Total Protein (6.4-8.2) g/dl Albumin (3.4-5.0) g/dl Globulin gm/dL Albumin/Globulin Ratio (1-2) SARS-CoV-2 RNA (YONI) Negative (NEGATIVE) Blood Type O POSITIVE Gel Antibody Screen Negative Crossmatch See Detail Result Diagrams: 01/28/21 15:47 01/28/21 15:47 Sepsis Event Note - Evaluation Sepsis Screening Result: No Definite Risk - Focused Exam Vital Signs: Vital Signs Temp Temp Pulse Pulse Resp BP BP 01/28/21 14:27 36.4 C 75 16 134/87 01/28/21 14:20 78 16 128/87 01/28/21 11:53 36.9 C 90 16 129/89 Pulse Ox 01/28/21 14:27 99 01/28/21 14:20 99 01/28/21 11:53 99 Consult PN Assessment/Plan (1) Hypotension due to blood loss SNOMED Code(s): 64018012 Code(s): I95.89 - OTHER HYPOTENSION Priority: Medium Current Visit: Yes Onset Date: ~01/28/21 Comment: b.p normal currently but orthostatic on presentation with dizziness and gunn. (2) Rectal hemorrhage SNOMED Code(s): 23491794 Code(s): K62.5 - HEMORRHAGE OF ANUS AND RECTUM Priority: High Current Visit: Yes Onset Date: ~01/28/21 Comment: initial e.r hgn 11.7 and gibven i.v x 2 liters for orthostsis and will repeat hgn every 4-6 hours. he would like to get home to [place]s.p. and discussed stopping plavix and asa and observing next few days . consult gen surgery if bleeding continues. Problem List Initiated/Reviewed/Updated: Yes Plan: 75 y/o male with lower GI bleed - trend Hg every 4-6 hours - NPO until hemoglobin stable for 8-12 hours - plan for colonoscopy as outpatient if hg stabilized - medical management per primary Sweta Lazcano MD General surgery
[2021-01-28] MEDS ORDERED: Sodium Chloride 0.9% 1,000 ML IV SCH (18:00)
[2021-01-29] MEDS ORDERED: Sodium Chloride 0.9% 250 ML IV SCH (02:45)
--- NOTE | 2021-01-29 09:07 | CR ---
Chest: Portable view of the chest was obtained. Comparison: No previous chest imaging is available. Slight density is noted within the lateral left costophrenic angle. Lungs otherwise are clear. Heart size and mediastinum are normal. Scattered degenerative endplate spurring and disc space narrowing is seen within the spine. Minimal scoliosis is noted. Impression: 1. Slight density within the lateral left costophrenic angle most likely due to atelectasis or slight scarring. 2. Nothing acute is otherwise seen. Diagnostic code #2
[2021-01-29] MEDS ORDERED: Bisacodyl 5 MG Tab PO ONE (10:01)
[2021-01-29] MEDS ORDERED: Polyethylene Glycol 3350 Powder 17 GM Packet PO ONE ×2 (10:02→14:00)
--- NOTE | 2021-01-29 10:14 | PCM.CONSN ---
- General Info Date of Service: 01/29/21 Admission Dx/Problem (Free Text): Admission Diagnosis/Problem Admission Diagnosis/Problem GI bleed not requiring more than 4 units of blood in 24 hours, ICU, or surgery Subjective Update: Pt had large bloody stool with passage of clots overnight. He had hypotension and diaphoresis. Since that time he has had 2U PRBC, and plan for 2U FFP and 1 pack of platelets. Functional Status: Reports: Pain Controlled (pt denies any pain), Ambulating, Urinating - Patient Data Vitals - Most Recent: Last Vital Signs Temp 36.6 C 01/29/21 08:12 Pulse 68 01/29/21 08:12 Resp 16 01/29/21 08:12 BP 114/87 01/29/21 08:12 Pulse Ox 96 01/29/21 07:35 Orthostatic Blood Pressure [ 50/26 Standing] Orthostatic Blood Pressure [ 116/75 Sitting] Orthostatic Blood Pressure [ 128/97 Supine] Weight - Most Recent: 92.17 kg I&O - Last 24 Hours: Intake & Output 01/28/21 01/29/21 01/29/21 22:59 06:59 14:59 Intake Total 433 1716 460 Output Total 400 Balance 433 1316 460 Lab Results Last 24 Hours: Laboratory Results - last 24 hr 01/28/21 01/28/21 01/28/21 Range/Units 12:05 12:05 12:05 WBC 8.92 (4.23-9.07) K/mm3 RBC 4.37 L (4.63-6.08) M/mm3 Hgb 12.8 L (13.7-17.5) gm/dl Hct 38.4 L (40.1-51.0) % MCV 87.9 (79.0-92.2) fl MCH 29.3 (25.7-32.2) pg MCHC 33.3 (32.2-35.5) g/dl RDW Std Deviation 42.1 (35.1-43.9) fL Plt Count 226 (163-337) K/mm3 MPV 9.4 (9.4-12.3) fl Neut % (Auto) 88.4 H (34.0-67.9) % Lymph % (Auto) 5.7 L (21.8-53.1) % [place] % (Auto) 4.7 L (5.3-12.2) % Eos % (Auto) 0.8 (0.8-7.0) Baso % (Auto) 0.3 (0.1-1.2) % Neut # (Auto) 7.88 H (1.78-5.38) K/mm3 Lymph # (Auto) 0.51 L (1.32-3.57) K/mm3 [place] # (Auto) 0.42 (0.30-0.82) K/mm3 Eos # (Auto) 0.07 (0.04-0.54) K/mm3 Baso # (Auto) 0.03 (0.01-0.08) K/mm3 Manual Slide Review Abnormal smear PT 11.3 (9.7-12.0) SECONDS INR 1.06 APTT (21.7-31.4) SECONDS Sodium 141 (136-145) mEq/L Potassium 4.1 (3.5-5.1) mEq/L Chloride 107 (98-107) mEq/L Carbon Dioxide 25 (21-32) mEq/L Anion Gap 12.1 (5-15) BUN 16 (7-18) mg/dL Creatinine 1.8 H (0.7-1.3) mg/dL Est Cr Clr Drug Dosing 38.84 mL/min Estimated GFR (MDRD) 37 (>60) mL/min BUN/Creatinine Ratio 8.9 L (14-18) Glucose 175 H (83-115) mg/dL Calcium 8.5 (8.5-10.1) mg/dL Magnesium (1.8-2.4) mg/dl Total Bilirubin 0.6 (0.2-1.0) mg/dL AST 14 L (15-37) U/L ALT 23 (16-63) U/L Alkaline Phosphatase 52 (46-116) U/L Troponin I < 0.017 (0.00-0.056) ng/mL C-Reactive Protein < 0.2 (<1.0) mg/dL Total Protein 6.1 L (6.4-8.2) g/dl Albumin 3.6 (3.4-5.0) g/dl Globulin 2.5 gm/dL Albumin/Globulin Ratio 1.4 (1-2) Urine Color (Yellow) Urine Appearance (Clear) Urine pH (5.0-8.0) Ur Specific [place] (1.005-1.030) Urine Protein (Negative) Urine Glucose (UA) (Negative) Urine Ketones (Negative) Urine Occult Blood (Negative) Urine Nitrite (Negative) Urine Bilirubin (Negative) Urine Urobilinogen (0.2-1.0) Ur Leukocyte Esterase (Negative) Urine RBC (0-5) /hpf Urine WBC (0-5) /hpf Ur Squamous Epith Cells (0-5) /hpf Urine Bacteria (FEW) /hpf Urine Mucus (FEW) /hpf SARS-CoV-2 RNA (YONI) (NEGATIVE) Blood Type Gel Antibody Screen Crossmatch 01/28/21 01/28/21 01/28/21 Range/Units 12:05 12:05 12:33 WBC (4.23-9.07) K/mm3 RBC (4.63-6.08) M/mm3 Hgb (13.7-17.5) gm/dl Hct (40.1-51.0) % MCV (79.0-92.2) fl MCH (25.7-32.2) pg MCHC (32.2-35.5) g/dl RDW Std Deviation (35.1-43.9) fL Plt Count (163-337) K/mm3 MPV (9.4-12.3) fl Neut % (Auto) (34.0-67.9) % Lymph % (Auto) (21.8-53.1) % [place] % (Auto) (5.3-12.2) % Eos % (Auto) (0.8-7.0) Baso % (Auto) (0.1-1.2) % Neut # (Auto) (1.78-5.38) K/mm3 Lymph # (Auto) (1.32-3.57) K/mm3 [place] # (Auto) (0.30-0.82) K/mm3 Eos # (Auto) (0.04-0.54) K/mm3 Baso # (Auto) (0.01-0.08) K/mm3 Manual Slide Review PT (9.7-12.0) SECONDS INR APTT 21.5 L (21.7-31.4) SECONDS Sodium (136-145) mEq/L Potassium (3.5-5.1) mEq/L Chloride (98-107) mEq/L Carbon Dioxide (21-32) mEq/L Anion Gap (5-15) BUN (7-18) mg/dL Creatinine (0.7-1.3) mg/dL Est Cr Clr Drug Dosing mL/min Estimated GFR (MDRD) (>60) mL/min BUN/Creatinine Ratio (14-18) Glucose (83-115) mg/dL Calcium (8.5-10.1) mg/dL Magnesium (1.8-2.4) mg/dl Total Bilirubin (0.2-1.0) mg/dL AST (15-37) U/L ALT (16-63) U/L Alkaline Phosphatase (46-116) U/L Troponin I (0.00-0.056) ng/mL C-Reactive Protein (<1.0) mg/dL Total Protein (6.4-8.2) g/dl Albumin (3.4-5.0) g/dl Globulin gm/dL Albumin/Globulin Ratio (1-2) Urine Color (Yellow) Urine Appearance (Clear) Urine pH (5.0-8.0) Ur Specific [place] (1.005-1.030) Urine Protein (Negative) Urine Glucose (UA) (Negative) Urine Ketones (Negative) Urine Occult Blood (Negative) Urine Nitrite (Negative) Urine Bilirubin (Negative) Urine Urobilinogen (0.2-1.0) Ur Leukocyte Esterase (Negative) Urine RBC (0-5) /hpf Urine WBC (0-5) /hpf Ur Squamous Epith Cells (0-5) /hpf Urine Bacteria (FEW) /hpf Urine Mucus (FEW) /hpf SARS-CoV-2 RNA (YONI) Negative (NEGATIVE) Blood Type O POSITIVE Gel Antibody Screen Negative Crossmatch See Detail 01/28/21 01/28/21 01/28/21 Range/Units 15:47 15:47 19:55 WBC 9.63 H (4.23-9.07) K/mm3 RBC 4.19 L (4.63-6.08) M/mm3 Hgb 12.0 L (13.7-17.5) gm/dl Hct 36.9 L (40.1-51.0) % MCV 88.1 (79.0-92.2) fl MCH 28.6 (25.7-32.2) pg MCHC 32.5 (32.2-35.5) g/dl RDW Std Deviation 42.6 (35.1-43.9) fL Plt Count 237 (163-337) K/mm3 MPV 9.1 L (9.4-12.3) fl Neut % (Auto) 91.2 H (34.0-67.9) % Lymph % (Auto) 4.7 L (21.8-53.1) % [place] % (Auto) 3.5 L (5.3-12.2) % Eos % (Auto) 0.3 L (0.8-7.0) Baso % (Auto) 0.2 (0.1-1.2) % Neut # (Auto) 8.78 H (1.78-5.38) K/mm3 Lymph # (Auto) 0.45 L (1.32-3.57) K/mm3 [place] # (Auto) 0.34 (0.30-0.82) K/mm3 Eos # (Auto) 0.03 L (0.04-0.54) K/mm3 Baso # (Auto) 0.02 (0.01-0.08) K/mm3 Manual Slide Review Abnormal smear PT (9.7-12.0) SECONDS INR APTT (21.7-31.4) SECONDS Sodium 141 (136-145) mEq/L Potassium 4.1 (3.5-5.1) mEq/L Chloride 107 (98-107) mEq/L Carbon Dioxide 24 (21-32) mEq/L Anion Gap 14.1 (5-15) BUN 16 (7-18) mg/dL Creatinine 1.3 (0.7-1.3) mg/dL Est Cr Clr Drug Dosing 53.78 mL/min Estimated GFR (MDRD) 54 (>60) mL/min BUN/Creatinine Ratio 12.3 L (14-18) Glucose 120 H (83-115) mg/dL Calcium 8.0 L (8.5-10.1) mg/dL Magnesium (1.8-2.4) mg/dl Total Bilirubin (0.2-1.0) mg/dL AST (15-37) U/L ALT (16-63) U/L Alkaline Phosphatase (46-116) U/L Troponin I (0.00-0.056) ng/mL C-Reactive Protein (<1.0) mg/dL Total Protein (6.4-8.2) g/dl Albumin (3.4-5.0) g/dl Globulin gm/dL Albumin/Globulin Ratio (1-2) Urine Color Yellow (Yellow) Urine Appearance Clear (Clear) Urine pH 6.0 (5.0-8.0) Ur Specific [place] 1.025 (1.005-1.030) Urine Protein Negative (Negative) Urine Glucose (UA) Negative (Negative) Urine Ketones Negative (Negative) Urine Occult Blood 1+ H (Negative) Urine Nitrite Negative (Negative) Urine Bilirubin Negative (Negative) Urine Urobilinogen 0.2 (0.2-1.0) Ur Leukocyte Esterase Negative (Negative) Urine RBC 0-5 (0-5) /hpf Urine WBC 0-5 (0-5) /hpf Ur Squamous Epith Cells 0-5 (0-5) /hpf Urine Bacteria Occasional (FEW) /hpf Urine Mucus Not seen (FEW) /hpf SARS-CoV-2 RNA (YONI) (NEGATIVE) Blood Type Gel Antibody Screen Crossmatch 01/28/21 01/29/21 01/29/21 Range/Units 21:21 02:10 02:10 WBC 6.37 (4.23-9.07) K/mm3 RBC 3.10 L (4.63-6.08) M/mm3 Hgb 11.0 L 9.1 L D (13.7-17.5) gm/dl Hct 33.6 L 27.6 L (40.1-51.0) % MCV 89.0 (79.0-92.2) fl MCH 29.4 (25.7-32.2) pg MCHC 33.0 (32.2-35.5) g/dl RDW Std Deviation 41.6 (35.1-43.9) fL Plt Count 179 (163-337) K/mm3 MPV 8.7 L (9.4-12.3) fl Neut % (Auto) 80.1 H (34.0-67.9) % Lymph % (Auto) 11.0 L (21.8-53.1) % [place] % (Auto) 7.5 (5.3-12.2) % Eos % (Auto) 1.1 (0.8-7.0) Baso % (Auto) 0.3 (0.1-1.2) % Neut # (Auto) 5.10 (1.78-5.38) K/mm3 Lymph # (Auto) 0.70 L (1.32-3.57) K/mm3 [place] # (Auto) 0.48 (0.30-0.82) K/mm3 Eos # (Auto) 0.07 (0.04-0.54) K/mm3 Baso # (Auto) 0.02 (0.01-0.08) K/mm3 Manual Slide Review Not Reportable PT (9.7-12.0) SECONDS INR APTT (21.7-31.4) SECONDS Sodium 143 (136-145) mEq/L Potassium 4.3 (3.5-5.1) mEq/L Chloride 111 H (98-107) mEq/L Carbon Dioxide 21 (21-32) mEq/L Anion Gap 14.3 (5-15) BUN 17 (7-18) mg/dL Creatinine 1.3 (0.7-1.3) mg/dL Est Cr Clr Drug Dosing 53.78 mL/min Estimated GFR (MDRD) 54 (>60) mL/min BUN/Creatinine Ratio 13.1 L (14-18) Glucose 144 H (83-115) mg/dL Calcium 7.7 L (8.5-10.1) mg/dL Magnesium 1.8 (1.8-2.4) mg/dl Total Bilirubin (0.2-1.0) mg/dL AST (15-37) U/L ALT (16-63) U/L Alkaline Phosphatase (46-116) U/L Troponin I (0.00-0.056) ng/mL C-Reactive Protein (<1.0) mg/dL Total Protein (6.4-8.2) g/dl Albumin (3.4-5.0) g/dl Globulin gm/dL Albumin/Globulin Ratio (1-2) Urine Color (Yellow) Urine Appearance (Clear) Urine pH (5.0-8.0) Ur Specific [place] (1.005-1.030) Urine Protein (Negative) Urine Glucose (UA) (Negative) Urine Ketones (Negative) Urine Occult Blood (Negative) Urine Nitrite (Negative) Urine Bilirubin (Negative) Urine Urobilinogen (0.2-1.0) Ur Leukocyte Esterase (Negative) Urine RBC (0-5) /hpf Urine WBC (0-5) /hpf Ur Squamous Epith Cells (0-5) /hpf Urine Bacteria (FEW) /hpf Urine Mucus (FEW) /hpf SARS-CoV-2 RNA (YONI) (NEGATIVE) Blood Type Gel Antibody Screen Crossmatch Med Orders - Current: Current Medications Sodium Chloride (Normal Saline) 1,000 mls @ 150 mls/hr IV ASDIRECTED SENAIT Last Admin: 01/28/21 20:59 Dose: 150 mls/hr Documented by: Sodium Chloride (Normal Saline) 250 mls @ 30 mls/hr IV ASDIRECTED SENAIT Last Admin: 01/29/21 02:00 Dose: 30 mls/hr Documented by: Sodium Chloride (Sodium Chloride 0.9% 10 Ml Syringe) 10 ml FLUSH ASDIRECTED PRN PRN Reason: Keep Vein Open Last Admin: 01/28/21 12:05 Dose: 10 ml Documented by: Discontinued Medications Bisacodyl (Bisacodyl 5 Mg Tab) 20 mg PO ONETIME ONE Stop: 01/29/21 10:02 Sodium Chloride (Normal Saline) 1,000 mls @ 999 mls/hr IV NOW STA Stop: 01/28/21 13:25 Last Admin: 01/28/21 12:38 Dose: 125 mls/hr Documented by: Sodium Chloride (Normal Saline) 1,000 mls @ 125 mls/hr IV NOW STA Stop: 01/28/21 21:49 Last Admin: 01/28/21 14:10 Dose: 125 mls/hr Documented by: Sodium Chloride (Normal Saline) 1,000 mls @ 250 mls/hr IV ONETIME ONE Stop: 01/28/21 18:55 Last Admin: 01/28/21 15:45 Dose: Not Given Documented by: Polyethylene Glycol (Polyethylene Glycol 3350 Powder 17 Gm Packet) 255 gm PO ONETIME ONE Stop: 01/29/21 10:03 - Exam Quality Assessment: Supplemental Oxygen General: Alert, Oriented HEENT: EOMI Lungs: Normal Respiratory Effort GI/Abdominal Exam: Soft, Non-Tender, No Distention Sepsis Event Note - Evaluation Sepsis Screening Result: No Definite Risk - Focused Exam Vital Signs: Vital Signs Temp Pulse Pulse Resp BP BP Pulse Ox 01/29/21 08:12 36.6 C 68 16 114/87 01/29/21 07:35 37.0 C 71 16 122/83 96 01/29/21 05:50 36.7 C 68 16 114/87 01/29/21 05:48 36.7 C 81 18 111/60 97 01/29/21 05:47 36.9 C 62 18 111/60 95 01/29/21 05:33 36.9 C 77 18 103/51 L 97 01/29/21 05:31 36.9 C 74 18 103/51 L 95 01/29/21 05:18 37.0 C 77 18 129/98 H 97 01/29/21 03:39 37.0 C 70 18 129/98 H 98 01/29/21 03:31 36.6 C 62 20 105/67 97 01/29/21 03:24 36.6 C 68 20 105/67 99 01/29/21 03:09 36.4 C 71 64 20 112/56 L 112/56 L 97 01/29/21 01:51 36.9 C 75 20 87/65 L 100 01/28/21 23:31 36.5 C 93 125/56 L 92 L Consult PN Assessment/Plan (1) Hypotension due to blood loss SNOMED Code(s): 12889316 Code(s): I95.89 - OTHER HYPOTENSION Priority: Medium Current Visit: Yes Onset Date: ~01/28/21 Comment: b.p normal currently but orthostatic on presentation with dizziness and gunn. (2) Rectal hemorrhage SNOMED Code(s): 78901993 Code(s): K62.5 - HEMORRHAGE OF ANUS AND RECTUM Priority: High Current Visit: Yes Onset Date: ~01/28/21 Comment: initial e.r hgn 11.7 and gibven i.v x 2 liters for orthostsis and will repeat hgn every 4-6 hours. he would like to get home to [place]s.p. and discussed stopping plavix and asa and observing next few days . consult gen surgery if bleeding continues. Problem List Initiated/Reviewed/Updated: Yes Plan: 75 y/o male with lower GI bleed - trend Hg every 4-6 hours - continue ordered transfusions of blood products - NPO until hemoglobin stable for 8-12 hours except for meds - plan for colonoscopy tomorrow am given large bleeding event. Discussed increased risks of perforation with bowel instrumentation. His written consent was obtained - Bowel prep today: Dulcolax 20mg (4 tablets) and Miralax 255mg in 64oz of Gatorade/Powerade administered in 2 divided doses of 32oz - medical management per primary Sweta Lazcano MD General surgery
[2021-01-29] MEDS ORDERED: diphenhydrAMINE 12.5 MG/5 ML Liquid 5 ML UD Cup PO ONE (12:20)
[2021-01-29] MEDS ORDERED: Dexamethasone 4 MG/ML 5 ML MDV IV PRN (12:35)
[2021-01-29] MEDS: Sodium Chloride 0.9% 1,000 ML IV SCH (14:15)
--- NOTE | 2021-01-29 16:05 | PCM.PREANE ---
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 Follows with cardiology. No use of Nitroglycerine in years. ) Gastrointestinal: Other (Large bloody clots last evening. Anemia, recieved 2 units of PRBCs. Current hemoglobin is 11.2. Serial monitoring. ) Neurological: No Symptoms Other: Reports: Easy Bleeding, Easy Bruising (Anticoagulated with plavix and ASA. ) - Physical Assessment NPO Status Date: 01/29/21 NPO Status Time: 21:00 Vital Signs: Last Vital Signs Temp 36.9 C 01/29/21 11:45 Pulse 78 01/29/21 11:45 Resp 16 01/29/21 11:45 BP 130/73 01/29/21 11:45 Pulse Ox 97 01/29/21 14:43 Orthostatic Blood Pressure [ 50/26 Standing] Orthostatic Blood Pressure [ 116/75 Sitting] Orthostatic Blood Pressure [ 128/97 Supine] Height: 1.85 m Weight: 92.17 kg ASA Class: 2 Mental Status: Alert & Oriented x3 Airway Class: Mallampati = 2 Dentition: Reports: Normal Dentition Thyro-Mental Finger Breadths: 3 Mouth Opening Finger Breadths: 3 ROM/Head Extension: Full Lungs: Clear to Auscultation, Normal Respiratory Effort Cardiovascular: Regular Rate, Regular Rhythm - Lab Values: Laboratory Last Values WBC 6.37 K/mm3 (4.23-9.07) 01/29/21 02:10 RBC 3.10 M/mm3 (4.63-6.08) L 01/29/21 02:10 Hgb 11.2 gm/dl (13.7-17.5) L D 01/29/21 12:12 Hct 34.2 % (40.1-51.0) L 01/29/21 12:12 MCV 89.0 fl (79.0-92.2) 01/29/21 02:10 MCH 29.4 pg (25.7-32.2) 01/29/21 02:10 MCHC 33.0 g/dl (32.2-35.5) 01/29/21 02:10 RDW Std Deviation 41.6 fL (35.1-43.9) 01/29/21 02:10 Plt Count 179 K/mm3 (163-337) 01/29/21 02:10 MPV 8.7 fl (9.4-12.3) L 01/29/21 02:10 Neut % (Auto) 80.1 % (34.0-67.9) H 01/29/21 02:10 Lymph % (Auto) 11.0 % (21.8-53.1) L 01/29/21 02:10 [place] % (Auto) 7.5 % (5.3-12.2) 01/29/21 02:10 Eos % (Auto) 1.1 (0.8-7.0) 01/29/21 02:10 Baso % (Auto) 0.3 % (0.1-1.2) 01/29/21 02:10 Neut # (Auto) 5.10 K/mm3 (1.78-5.38) 01/29/21 02:10 Lymph # (Auto) 0.70 K/mm3 (1.32-3.57) L 01/29/21 02:10 [place] # (Auto) 0.48 K/mm3 (0.30-0.82) 01/29/21 02:10 Eos # (Auto) 0.07 K/mm3 (0.04-0.54) 01/29/21 02:10 Baso # (Auto) 0.02 K/mm3 (0.01-0.08) 01/29/21 02:10 Manual Slide Review Not Reportable 01/29/21 02:10 PT 11.3 SECONDS (9.7-12.0) 01/28/21 12:05 INR 1.06 01/28/21 12:05 APTT 21.5 SECONDS (21.7-31.4) L 01/28/21 12:05 Sodium 143 mEq/L (136-145) 01/29/21 02:10 Potassium 4.3 mEq/L (3.5-5.1) 01/29/21 02:10 Chloride 111 mEq/L (98-107) H 01/29/21 02:10 Carbon Dioxide 21 mEq/L (21-32) 01/29/21 02:10 Anion Gap 14.3 (5-15) 01/29/21 02:10 BUN 17 mg/dL (7-18) 01/29/21 02:10 Creatinine 1.3 mg/dL (0.7-1.3) 01/29/21 02:10 Est Cr Clr Drug Dosing 53.78 mL/min 01/29/21 02:10 Estimated GFR (MDRD) 54 mL/min (>60) 01/29/21 02:10 BUN/Creatinine Ratio 13.1 (14-18) L 01/29/21 02:10 Glucose 144 mg/dL (83-115) H 01/29/21 02:10 Calcium 7.7 mg/dL (8.5-10.1) L 01/29/21 02:10 Magnesium 1.8 mg/dl (1.8-2.4) 01/29/21 02:10 Total Bilirubin 0.6 mg/dL (0.2-1.0) 01/28/21 12:05 AST 14 U/L (15-37) L 01/28/21 12:05 ALT 23 U/L (16-63) 01/28/21 12:05 Alkaline Phosphatase 52 U/L (46-116) 01/28/21 12:05 Troponin I < 0.017 ng/mL (0.00-0.056) 01/28/21 12:05 C-Reactive Protein < 0.2 mg/dL (<1.0) 01/28/21 12:05 Total Protein 6.1 g/dl (6.4-8.2) L 01/28/21 12:05 Albumin 3.6 g/dl (3.4-5.0) 01/28/21 12:05 Globulin 2.5 gm/dL 01/28/21 12:05 Albumin/Globulin Ratio 1.4 (1-2) 01/28/21 12:05 Urine Color Yellow (Yellow) 01/28/21 19:55 Urine Appearance Clear (Clear) 01/28/21 19:55 Urine pH 6.0 (5.0-8.0) 01/28/21 19:55 Ur Specific Babb 1.025 (1.005-1.030) 01/28/21 19:55 Urine Protein Negative (Negative) 01/28/21 19:55 Urine Glucose (UA) Negative (Negative) 01/28/21 19:55 Urine Ketones Negative (Negative) 01/28/21 19:55 Urine Occult Blood 1+ (Negative) H 01/28/21 19:55 Urine Nitrite Negative (Negative) 01/28/21 19:55 Urine Bilirubin Negative (Negative) 01/28/21 19:55 Urine Urobilinogen 0.2 (0.2-1.0) 01/28/21 19:55 Ur Leukocyte Esterase Negative (Negative) 01/28/21 19:55 Urine RBC 0-5 /hpf (0-5) 01/28/21 19:55 Urine WBC 0-5 /hpf (0-5) 01/28/21 19:55 Ur Squamous Epith Cells 0-5 /hpf (0-5) 01/28/21 19:55 Urine Bacteria Occasional /hpf (FEW) 01/28/21 19:55 Urine Mucus Not seen /hpf (FEW) 01/28/21 19:55 SARS-CoV-2 RNA (YONI) Negative (NEGATIVE) 01/28/21 12:33 Blood Type O POSITIVE 01/28/21 12:05 Gel Antibody Screen Negative 01/28/21 12:05 Crossmatch See Detail 01/28/21 12:05 Tx Rx Implicated Unit 1 [id number] 01/29/21 12:12 Unit 1 Component O positive 01/29/21 12:12 Tx React Review Date 01/29 at 1315 01/29/21 12:12 Reaction Clerical Check Acceptable 01/29/21 12:12 Pre-Trans Vis Hemolysis Negative 01/29/21 12:12 Pre-Trans Icterus Negative 01/29/21 12:12 Post-Trans Blood Type O positive 01/29/21 12:12 Post-Tx Visible Hemolys Negative 01/29/21 12:12 Post-Trans Icterus Negative 01/29/21 12:12 Post-Trans TL IgG Negative 01/29/21 12:12 Post-Trans TL Poly Negative 01/29/21 12:12 Reaction Interpretation 01/29/21 12:[address] damon 01/29/21 12:12 01/30/21 hgb 9.8 hct 29.6 plt 168 - Allergies Allergies/Adverse Reactions: Allergies Allergy/AdvReac Type Severity Reaction Status Date / Time No Known Allergies Allergy Verified 01/28/21 11:56 - Anesthesia Plan Pre-Op Medication Ordered: None - Acknowledgements Anesthesia Type Planned: MAC Pt an Appropriate Candidate for the Planned Anesthesia: Yes Alternatives and Risks of Anesthesia Discussed w Pt/Guardian: Yes Pt/Guardian Understands and Agrees with Anesthesia Plan: Yes PreAnesthesia Questionnaire HEENT History: Reports: Cataract Cardiovascular History: Reports: CAD, [place]. Denies: Afib, Aneurysm, Arrhythmia, Blood Clots/VTE/DVT, Heart Failure, Heart Murmur Gastrointestinal History: Reports: Diverticulosis, GI Bleed Musculoskeletal History: Reports: Osteoarthritis Neurological History: Reports: None Psychiatric History: Reports: None Endocrine/Metabolic History: Reports: None Hematologic History: Reports: None Oncologic (Cancer) History: Reports: None Dermatologic History: Reports: None - Infectious Disease History Infectious Disease History: Reports: None - Past Surgical History Cardiovascular Surgical History: Reports: Carotid Stents - SUBSTANCE USE Tobacco Use Status *Q: Never Tobacco User Second Hand Smoke Exposure: No Recreational Drug Use History: No - HOME MEDS Home Medications: Home Meds Aspirin 81 mg PO DAILY 01/28/21 [History] Clopidogrel [Plavix] 75 mg PO DAILY 01/28/21 [History] Losartan Potassium 50 mg PO BEDTIME 01/28/21 [History] Nitroglycerin [Nitrostat] 0.4 mg SL ASDIRECTED PRN 01/28/21 [History] Simvastatin 40 mg PO BEDTIME 01/28/21 [History] - CURRENT (IN HOUSE) MEDS Current Meds: Current Medications Dexamethasone (Dexamethasone 4 Mg/Ml 5 Ml Mdv) 6 mg IV Q6H PRN PRN Reason: Hives Last Admin: 01/29/21 12:52 Dose: 6 mg Documented by: Sodium Chloride (Normal Saline) 1,000 mls @ 65 mls/hr IV ASDIRECTED SENAIT Last Admin: 01/29/21 14:15 Dose: 65 mls/hr Documented by: Sodium Chloride (Sodium Chloride 0.9% 10 Ml Syringe) 10 ml FLUSH ASDIRECTED PRN PRN Reason: Keep Vein Open Last Admin: 01/28/21 12:05 Dose: 10 ml Documented by: Discontinued Medications Bisacodyl (Bisacodyl 5 Mg Tab) 20 mg PO ONETIME ONE Stop: 01/29/21 10:02 Last Admin: 01/29/21 10:47 Dose: 20 mg Documented by: Diphenhydramine HCl (Diphenhydramine 12.5 Mg/5 Ml Liquid 5 Ml Ud Cup) 12.5 mg PO BID ONE Stop: 01/29/21 12:21 Last Admin: 01/29/21 12:41 Dose: 12.5 mg Documented by: Sodium Chloride (Normal Saline) 1,000 mls @ 999 mls/hr IV NOW STA Stop: 01/28/21 13:25 Last Admin: 01/28/21 12:38 Dose: 125 mls/hr Documented by: Sodium Chloride (Normal Saline) 1,000 mls @ 125 mls/hr IV NOW STA Stop: 01/28/21 21:49 Last Admin: 01/28/21 14:10 Dose: 125 mls/hr Documented by: Sodium Chloride (Normal Saline) 1,000 mls @ 250 mls/hr IV ONETIME ONE Stop: 01/28/21 18:55 Last Admin: 01/28/21 15:45 Dose: Not Given Documented by: Sodium Chloride (Normal Saline) 1,000 mls @ 150 mls/hr IV ASDIRECTED [facility] Last Admin: 01/28/21 20:59 Dose: 150 mls/hr Documented by: Sodium Chloride (Normal Saline) 250 mls @ 30 mls/hr IV ASDIRECTED [facility] Last Admin: 01/29/21 02:00 Dose: 30 mls/hr Documented by: Polyethylene Glycol (Polyethylene Glycol 3350 Powder 17 Gm Packet) 255 gm PO ONETIME ONE Stop: 01/29/21 10:03 Last Admin: 01/29/21 11:50 Dose: Not Given Documented by: Polyethylene Glycol (Polyethylene Glycol 3350 Powder 17 Gm Packet) 255 gm PO ONETIME ONE Stop: 01/29/21 14:01 Last Admin: 01/29/21 14:17 Dose: 255 gm Documented by:
--- NOTE | 2021-01-29 16:37 | PCM.PN ---
- General Info Date of Service: 01/29/21 Admission Dx/Problem (Free Text): Admission Diagnosis/Problem Admission Diagnosis/Problem GI bleed not requiring more than 4 units of blood in 24 hours, ICU, or surgery Subjective Update: Patient feels fine. Denies nausea, vomiting, or bleeding. But dry blood clots noted on the diaper Blood pressure improved in this afternoon Hemoglobin 9.1 which was a 11.0 yesterday Patient is on n.p.o. for colonoscopy tomorrow - Review of Systems Systems Review Comment:: General: Reports: Weakness HEENT: Reports: No Symptoms Pulmonary: Reports: Shortness of Breath Cardiovascular: Reports: No Symptoms Gastrointestinal: Reports: Bloody Stool Genitourinary: Reports: No Symptoms Musculoskeletal: Reports: No Symptoms Skin: Reports: No Symptoms Neurological: Reports: No Symptoms Hematologic/Lymphatic: Reports: No Symptoms - Patient Data Vitals - Most Recent: Last Vital Signs Temp 36.6 C 01/29/21 15:54 Pulse 87 01/29/21 15:54 Resp 16 01/29/21 15:54 BP 135/70 01/29/21 15:54 Pulse Ox 96 01/29/21 15:54 Orthostatic Blood Pressure [ 50/26 Standing] Orthostatic Blood Pressure [ 116/75 Sitting] Orthostatic Blood Pressure [ 128/97 Supine] Weight - Most Recent: 92.17 kg I&O - Last 24 Hours: Intake & Output 01/29/21 01/29/21 01/29/21 06:59 14:59 22:59 Intake Total 1716 491 Output Total 400 Balance 1316 491 Lab Results Last 24 Hours: Laboratory Results - last 24 hr 01/28/21 01/28/21 01/28/21 Range/Units 12:05 19:55 21:21 WBC (4.23-9.07) K/mm3 RBC (4.63-6.08) M/mm3 Hgb 11.0 L (13.7-17.5) gm/dl Hct 33.6 L (40.1-51.0) % MCV (79.0-92.2) fl MCH (25.7-32.2) pg MCHC (32.2-35.5) g/dl RDW Std Deviation (35.1-43.9) fL Plt Count (163-337) K/mm3 MPV (9.4-12.3) fl Neut % (Auto) (34.0-67.9) % Lymph % (Auto) (21.8-53.1) % [place] % (Auto) (5.3-12.2) % Eos % (Auto) (0.8-7.0) Baso % (Auto) (0.1-1.2) % Neut # (Auto) (1.78-5.38) K/mm3 Lymph # (Auto) (1.32-3.57) K/mm3 [place] # (Auto) (0.30-0.82) K/mm3 Eos # (Auto) (0.04-0.54) K/mm3 Baso # (Auto) (0.01-0.08) K/mm3 Manual Slide Review Sodium (136-145) mEq/L Potassium (3.5-5.1) mEq/L Chloride (98-107) mEq/L Carbon Dioxide (21-32) mEq/L Anion Gap (5-15) BUN (7-18) mg/dL Creatinine (0.7-1.3) mg/dL Est Cr Clr Drug Dosing mL/min Estimated GFR (MDRD) (>60) mL/min BUN/Creatinine Ratio (14-18) Glucose (83-115) mg/dL Calcium (8.5-10.1) mg/dL Magnesium (1.8-2.4) mg/dl Urine Color Yellow (Yellow) Urine Appearance Clear (Clear) Urine pH 6.0 (5.0-8.0) Ur Specific [place] 1.025 (1.005-1.030) Urine Protein Negative (Negative) Urine Glucose (UA) Negative (Negative) Urine Ketones Negative (Negative) Urine Occult Blood 1+ H (Negative) Urine Nitrite Negative (Negative) Urine Bilirubin Negative (Negative) Urine Urobilinogen 0.2 (0.2-1.0) Ur Leukocyte Esterase Negative (Negative) Urine RBC 0-5 (0-5) /hpf Urine WBC 0-5 (0-5) /hpf Ur Squamous Epith Cells 0-5 (0-5) /hpf Urine Bacteria Occasional (FEW) /hpf Urine Mucus Not seen (FEW) /hpf Blood Type O POSITIVE Gel Antibody Screen Negative Crossmatch See Detail Tx Rx Implicated Unit 1 Unit 1 Component Tx React Review Date Reaction Clerical Check Pre-Trans Vis Hemolysis Pre-Trans Icterus Post-Trans Blood Type Post-Tx Visible Hemolys Post-Trans Icterus Post-Trans TL IgG Post-Trans TL Poly Reaction Interpretation Reaction Pathol Review 01/29/21 01/29/21 01/29/21 Range/Units 02:10 02:10 12:12 WBC 6.37 (4.23-9.07) K/mm3 RBC 3.10 L (4.63-6.08) M/mm3 Hgb 9.1 L D 11.2 L D (13.7-17.5) gm/dl Hct 27.6 L 34.2 L (40.1-51.0) % MCV 89.0 (79.0-92.2) fl MCH 29.4 (25.7-32.2) pg MCHC 33.0 (32.2-35.5) g/dl RDW Std Deviation 41.6 (35.1-43.9) fL Plt Count 179 (163-337) K/mm3 MPV 8.7 L (9.4-12.3) fl Neut % (Auto) 80.1 H (34.0-67.9) % Lymph % (Auto) 11.0 L (21.8-53.1) % [place] % (Auto) 7.5 (5.3-12.2) % Eos % (Auto) 1.1 (0.8-7.0) Baso % (Auto) 0.3 (0.1-1.2) % Neut # (Auto) 5.10 (1.78-5.38) K/mm3 Lymph # (Auto) 0.70 L (1.32-3.57) K/mm3 [place] # (Auto) 0.48 (0.30-0.82) K/mm3 Eos # (Auto) 0.07 (0.04-0.54) K/mm3 Baso # (Auto) 0.02 (0.01-0.08) K/mm3 Manual Slide Review Not Reportable Sodium 143 (136-145) mEq/L Potassium 4.3 (3.5-5.1) mEq/L Chloride 111 H (98-107) mEq/L Carbon Dioxide 21 (21-32) mEq/L Anion Gap 14.3 (5-15) BUN 17 (7-18) mg/dL Creatinine 1.3 (0.7-1.3) mg/dL Est Cr Clr Drug Dosing 53.78 mL/min Estimated GFR (MDRD) 54 (>60) mL/min BUN/Creatinine Ratio 13.1 L (14-18) Glucose 144 H (83-115) mg/dL Calcium 7.7 L (8.5-10.1) mg/dL Magnesium 1.8 (1.8-2.4) mg/dl Urine Color (Yellow) Urine Appearance (Clear) Urine pH (5.0-8.0) Ur Specific [place] (1.005-1.030) Urine Protein (Negative) Urine Glucose (UA) (Negative) Urine Ketones (Negative) Urine Occult Blood (Negative) Urine Nitrite (Negative) Urine Bilirubin (Negative) Urine Urobilinogen (0.2-1.0) Ur Leukocyte Esterase (Negative) Urine RBC (0-5) /hpf Urine WBC (0-5) /hpf Ur Squamous Epith Cells (0-5) /hpf Urine Bacteria (FEW) /hpf Urine Mucus (FEW) /hpf Blood Type Gel Antibody Screen Crossmatch Tx Rx Implicated Unit 1 Unit 1 Component Tx React Review Date Reaction Clerical Check Pre-Trans Vis Hemolysis Pre-Trans Icterus Post-Trans Blood Type Post-Tx Visible Hemolys Post-Trans Icterus Post-Trans TL IgG Post-Trans TL Poly Reaction Interpretation Reaction Pathol Review 01/29/21 Range/Units 12:12 WBC (4.23-9.07) K/mm3 RBC (4.63-6.08) M/mm3 Hgb (13.7-17.5) gm/dl Hct (40.1-51.0) % MCV (79.0-92.2) fl MCH (25.7-32.2) pg MCHC (32.2-35.5) g/dl RDW Std Deviation (35.1-43.9) fL Plt Count (163-337) K/mm3 MPV (9.4-12.3) fl Neut % (Auto) (34.0-67.9) % Lymph % (Auto) (21.8-53.1) % [place] % (Auto) (5.3-12.2) % Eos % (Auto) (0.8-7.0) Baso % (Auto) (0.1-1.2) % Neut # (Auto) (1.78-5.38) K/mm3 Lymph # (Auto) (1.32-3.57) K/mm3 [place] # (Auto) (0.30-0.82) K/mm3 Eos # (Auto) (0.04-0.54) K/mm3 Baso # (Auto) (0.01-0.08) K/mm3 Manual Slide Review Sodium (136-145) mEq/L Potassium (3.5-5.1) mEq/L Chloride (98-107) mEq/L Carbon Dioxide (21-32) mEq/L Anion Gap (5-15) BUN (7-18) mg/dL Creatinine (0.7-1.3) mg/dL Est Cr Clr Drug Dosing mL/min Estimated GFR (MDRD) (>60) mL/min BUN/Creatinine Ratio (14-18) Glucose (83-115) mg/dL Calcium (8.5-10.1) mg/dL Magnesium (1.8-2.4) mg/dl Urine Color (Yellow) Urine Appearance (Clear) Urine pH (5.0-8.0) Ur Specific [place] (1.005-1.030) Urine Protein (Negative) Urine Glucose (UA) (Negative) Urine Ketones (Negative) Urine Occult Blood (Negative) Urine Nitrite (Negative) Urine Bilirubin (Negative) Urine Urobilinogen (0.2-1.0) Ur Leukocyte Esterase (Negative) Urine RBC (0-5) /hpf Urine WBC (0-5) /hpf Ur Squamous Epith Cells (0-5) /hpf Urine Bacteria (FEW) /hpf Urine Mucus (FEW) /hpf Blood Type Gel Antibody Screen Crossmatch Tx Rx Implicated Unit 1 [id number] Unit 1 Component O positive Tx React Review Date 01/29 at 1315 Reaction Clerical Check Acceptable Pre-Trans Vis Hemolysis Negative Pre-Trans Icterus Negative Post-Trans Blood Type O positive Post-Tx Visible Hemolys Negative Post-Trans Icterus Negative Post-Trans TL IgG Negative Post-Trans TL Poly Negative Reaction Interpretation Reaction Pathol Review Dr. damon Med Orders - Current: Current Medications Dexamethasone (Dexamethasone 4 Mg/Ml 5 Ml Mdv) 6 mg IV Q6H PRN PRN Reason: Hives Last Admin: 01/29/21 12:52 Dose: 6 mg Documented by: Sodium Chloride (Normal Saline) 1,000 mls @ 65 mls/hr IV ASDIRECTED SENAIT Last Admin: 01/29/21 14:15 Dose: 65 mls/hr Documented by: Sodium Chloride (Sodium Chloride 0.9% 10 Ml Syringe) 10 ml FLUSH ASDIRECTED PRN PRN Reason: Keep Vein Open Last Admin: 01/28/21 12:05 Dose: 10 ml Documented by: Discontinued Medications Bisacodyl (Bisacodyl 5 Mg Tab) 20 mg PO ONETIME ONE Stop: 01/29/21 10:02 Last Admin: 01/29/21 10:47 Dose: 20 mg Documented by: Diphenhydramine HCl (Diphenhydramine 12.5 Mg/5 Ml Liquid 5 Ml Ud Cup) 12.5 mg PO BID ONE Stop: 01/29/21 12:21 Last Admin: 01/29/21 12:41 Dose: 12.5 mg Documented by: Sodium Chloride (Normal Saline) 1,000 mls @ 999 mls/hr IV NOW STA Stop: 01/28/21 13:25 Last Admin: 01/28/21 12:38 Dose: 125 mls/hr Documented by: Sodium Chloride (Normal Saline) 1,000 mls @ 125 mls/hr IV NOW STA Stop: 01/28/21 21:49 Last Admin: 01/28/21 14:10 Dose: 125 mls/hr Documented by: Sodium Chloride (Normal Saline) 1,000 mls @ 250 mls/hr IV ONETIME ONE Stop: 01/28/21 18:55 Last Admin: 01/28/21 15:45 Dose: Not Given Documented by: Sodium Chloride (Normal Saline) 1,000 mls @ 150 mls/hr IV ASDIRECTED SENAIT Last Admin: 01/28/21 20:59 Dose: 150 mls/hr Documented by: Sodium Chloride (Normal Saline) 250 mls @ 30 mls/hr IV ASDIRECTED SENAIT Last Admin: 01/29/21 02:00 Dose: 30 mls/hr Documented by: Polyethylene Glycol (Polyethylene Glycol 3350 Powder 17 Gm Packet) 255 gm PO ONETIME ONE Stop: 01/29/21 10:03 Last Admin: 01/29/21 11:50 Dose: Not Given Documented by: Polyethylene Glycol (Polyethylene Glycol 3350 Powder 17 Gm Packet) 255 gm PO ONETIME ONE Stop: 01/29/21 14:01 Last Admin: 01/29/21 14:17 Dose: 255 gm Documented by: - Exam Physical Findings Comments:: General: Alert, Oriented HEENT: EOMI Neck: Supple Lungs: Normal Respiratory Effort GI/Abdominal Exam: Soft, Non-Tender, No Distention Extremities: Normal Inspection, No Pedal Edema Peripheral Pulses: 2+: Dorsalis Pedis (L), Dorsalis Pedis (R) Neurological: Cranial Nerves Intact Neuro Extensive - Mental Status: Normal Mood/Affect - Patient Data Lab Results Last 24 hrs: Laboratory Results - last 24 hr 01/28/21 01/28/21 01/28/21 Range/Units 12:05 19:55 21:21 WBC (4.23-9.07) K/mm3 RBC (4.63-6.08) M/mm3 Hgb 11.0 L (13.7-17.5) gm/dl Hct 33.6 L (40.1-51.0) % MCV (79.0-92.2) fl MCH (25.7-32.2) pg MCHC (32.2-35.5) g/dl RDW Std Deviation (35.1-43.9) fL Plt Count (163-337) K/mm3 MPV (9.4-12.3) fl Neut % (Auto) (34.0-67.9) % Lymph % (Auto) (21.8-53.1) % [place] % (Auto) (5.3-12.2) % Eos % (Auto) (0.8-7.0) Baso % (Auto) (0.1-1.2) % Neut # (Auto) (1.78-5.38) K/mm3 Lymph # (Auto) (1.32-3.57) K/mm3 [place] # (Auto) (0.30-0.82) K/mm3 Eos # (Auto) (0.04-0.54) K/mm3 Baso # (Auto) (0.01-0.08) K/mm3 Manual Slide Review Sodium (136-145) mEq/L Potassium (3.5-5.1) mEq/L Chloride (98-107) mEq/L Carbon Dioxide (21-32) mEq/L Anion Gap (5-15) BUN (7-18) mg/dL Creatinine (0.7-1.3) mg/dL Est Cr Clr Drug Dosing mL/min Estimated GFR (MDRD) (>60) mL/min BUN/Creatinine Ratio (14-18) Glucose (83-115) mg/dL Calcium (8.5-10.1) mg/dL Magnesium (1.8-2.4) mg/dl Urine Color Yellow (Yellow) Urine Appearance Clear (Clear) Urine pH 6.0 (5.0-8.0) Ur Specific [place] 1.025 (1.005-1.030) Urine Protein Negative (Negative) Urine Glucose (UA) Negative (Negative) Urine Ketones Negative (Negative) Urine Occult Blood 1+ H (Negative) Urine Nitrite Negative (Negative) Urine Bilirubin Negative (Negative) Urine Urobilinogen 0.2 (0.2-1.0) Ur Leukocyte Esterase Negative (Negative) Urine RBC 0-5 (0-5) /hpf Urine WBC 0-5 (0-5) /hpf Ur Squamous Epith Cells 0-5 (0-5) /hpf Urine Bacteria Occasional (FEW) /hpf Urine Mucus Not seen (FEW) /hpf Blood Type O POSITIVE Gel Antibody Screen Negative Crossmatch See Detail Tx Rx Implicated Unit 1 Unit 1 Component Tx React Review Date Reaction Clerical Check Pre-Trans Vis Hemolysis Pre-Trans Icterus Post-Trans Blood Type Post-Tx Visible Hemolys Post-Trans Icterus Post-Trans TL IgG Post-Trans TL Poly Reaction Interpretation Reaction Pathol Review 01/29/21 01/29/21 01/29/21 Range/Units 02:10 02:10 12:12 WBC 6.37 (4.23-9.07) K/mm3 RBC 3.10 L (4.63-6.08) M/mm3 Hgb 9.1 L D 11.2 L D (13.7-17.5) gm/dl Hct 27.6 L 34.2 L (40.1-51.0) % MCV 89.0 (79.0-92.2) fl MCH 29.4 (25.7-32.2) pg MCHC 33.0 (32.2-35.5) g/dl RDW Std Deviation 41.6 (35.1-43.9) fL Plt Count 179 (163-337) K/mm3 MPV 8.7 L (9.4-12.3) fl Neut % (Auto) 80.1 H (34.0-67.9) % Lymph % (Auto) 11.0 L (21.8-53.1) % [place] % (Auto) 7.5 (5.3-12.2) % Eos % (Auto) 1.1 (0.8-7.0) Baso % (Auto) 0.3 (0.1-1.2) % Neut # (Auto) 5.10 (1.78-5.38) K/mm3 Lymph # (Auto) 0.70 L (1.32-3.57) K/mm3 [place] # (Auto) 0.48 (0.30-0.82) K/mm3 Eos # (Auto) 0.07 (0.04-0.54) K/mm3 Baso # (Auto) 0.02 (0.01-0.08) K/mm3 Manual Slide Review Not Reportable Sodium 143 (136-145) mEq/L Potassium 4.3 (3.5-5.1) mEq/L Chloride 111 H (98-107) mEq/L Carbon Dioxide 21 (21-32) mEq/L Anion Gap 14.3 (5-15) BUN 17 (7-18) mg/dL Creatinine 1.3 (0.7-1.3) mg/dL Est Cr Clr Drug Dosing 53.78 mL/min Estimated GFR (MDRD) 54 (>60) mL/min BUN/Creatinine Ratio 13.1 L (14-18) Glucose 144 H (83-115) mg/dL Calcium 7.7 L (8.5-10.1) mg/dL Magnesium 1.8 (1.8-2.4) mg/dl Urine Color (Yellow) Urine Appearance (Clear) Urine pH (5.0-8.0) Ur Specific [place] (1.005-1.030) Urine Protein (Negative) Urine Glucose (UA) (Negative) Urine Ketones (Negative) Urine Occult Blood (Negative) Urine Nitrite (Negative) Urine Bilirubin (Negative) Urine Urobilinogen (0.2-1.0) Ur Leukocyte Esterase (Negative) Urine RBC (0-5) /hpf Urine WBC (0-5) /hpf Ur Squamous Epith Cells (0-5) /hpf Urine Bacteria (FEW) /hpf Urine Mucus (FEW) /hpf Blood Type Gel Antibody Screen Crossmatch Tx Rx Implicated Unit 1 Unit 1 Component Tx React Review Date Reaction Clerical Check Pre-Trans Vis Hemolysis Pre-Trans Icterus Post-Trans Blood Type Post-Tx Visible Hemolys Post-Trans Icterus Post-Trans TL IgG Post-Trans TL Poly Reaction Interpretation Reaction Pathol Review 01/29/21 Range/Units 12:12 WBC (4.23-9.07) K/mm3 RBC (4.63-6.08) M/mm3 Hgb (13.7-17.5) gm/dl Hct (40.1-51.0) % MCV (79.0-92.2) fl MCH (25.7-32.2) pg MCHC (32.2-35.5) g/dl RDW Std Deviation (35.1-43.9) fL Plt Count (163-337) K/mm3 MPV (9.4-12.3) fl Neut % (Auto) (34.0-67.9) % Lymph % (Auto) (21.8-53.1) % [place] % (Auto) (5.3-12.2) % Eos % (Auto) (0.8-7.0) Baso % (Auto) (0.1-1.2) % Neut # (Auto) (1.78-5.38) K/mm3 Lymph # (Auto) (1.32-3.57) K/mm3 [place] # (Auto) (0.30-0.82) K/mm3 Eos # (Auto) (0.04-0.54) K/mm3 Baso # (Auto) (0.01-0.08) K/mm3 Manual Slide Review Sodium (136-145) mEq/L Potassium (3.5-5.1) mEq/L Chloride (98-107) mEq/L Carbon Dioxide (21-32) mEq/L Anion Gap (5-15) BUN (7-18) mg/dL Creatinine (0.7-1.3) mg/dL Est Cr Clr Drug Dosing mL/min Estimated GFR (MDRD) (>60) mL/min BUN/Creatinine Ratio (14-18) Glucose (83-115) mg/dL Calcium (8.5-10.1) mg/dL Magnesium (1.8-2.4) mg/dl Urine Color (Yellow) Urine Appearance (Clear) Urine pH (5.0-8.0) Ur Specific [place] (1.005-1.030) Urine Protein (Negative) Urine Glucose (UA) (Negative) Urine Ketones (Negative) Urine Occult Blood (Negative) Urine Nitrite (Negative) Urine Bilirubin (Negative) Urine Urobilinogen (0.2-1.0) Ur Leukocyte Esterase (Negative) Urine RBC (0-5) /hpf Urine WBC (0-5) /hpf Ur Squamous Epith Cells (0-5) /hpf Urine Bacteria (FEW) /hpf Urine Mucus (FEW) /hpf Blood Type Gel Antibody Screen Crossmatch Tx Rx Implicated Unit 1 [id number] Unit 1 Component O positive Tx React Review Date 01/29 at 1315 Reaction Clerical Check Acceptable Pre-Trans Vis Hemolysis Negative Pre-Trans Icterus Negative Post-Trans Blood Type O positive Post-Tx Visible Hemolys Negative Post-Trans Icterus Negative Post-Trans TL IgG Negative Post-Trans TL Poly Negative Reaction Interpretation Reaction Pathol Review Dr. damon Result Diagrams: 01/29/21 12:12 01/29/21 02:10 Sepsis Event Note - Evaluation Sepsis Screening Result: No Definite Risk - Focused Exam Vital Signs: Vital Signs Temp Pulse Pulse Resp BP BP Pulse Ox 01/29/21 15:54 36.6 C 87 16 135/70 96 01/29/21 14:43 01/29/21 12:59 10 L 01/29/21 12:57 15 01/29/21 12:29 90 110/64 96 01/29/21 12:28 36.9 C 91 16 97 01/29/21 12:18 117/67 01/29/21 11:45 36.9 C 78 16 130/73 97 01/29/21 08:12 36.6 C 68 16 114/87 01/29/21 08:11 36.7 C 68 16 114/87 97 01/29/21 07:35 37.0 C 71 16 122/83 96 01/29/21 05:50 36.7 C 68 16 114/87 01/29/21 05:48 36.7 C 81 18 111/60 97 01/29/21 05:47 36.9 C 62 18 111/60 95 01/29/21 05:33 36.9 C 77 18 103/51 L 97 01/29/21 05:31 36.9 C 74 18 103/51 L 95 01/29/21 05:18 37.0 C 77 18 129/98 H 97 Pulse Ox 01/29/21 15:54 01/29/21 14:43 97 01/29/21 12:59 01/29/21 12:57 01/29/21 12:29 01/29/21 12:28 01/29/21 12:18 01/29/21 11:45 01/29/21 08:12 01/29/21 08:11 01/29/21 07:35 01/29/21 05:50 01/29/21 05:48 01/29/21 05:47 01/29/21 05:33 01/29/21 05:31 01/29/21 05:18 - Problem List Review Problem List Initiated/Reviewed/Updated: Yes - My Orders Last 24 Hours: My Active Orders 01/29/21 12:12 TRANSFUSION REACTION [BBK] Routine 01/29/21 12:15 Sodium Chloride 0.9% [Normal Saline] 1,000 ml IV ASDIRECTED 01/29/21 12:35 dexAMETHasone 6 mg IV Q6H PRN - Plan Plan:: Patient is a 75-year-old male presenting to the emergency department for evaluation with regards to having 2 very large episodes of bright red bloody stool. Assessment: GI bleeding CAD, status post stenting 12 years ago Anemia of blood loss Hypotension due to blood loss Plan: 1. Continue to monitor in telemetry. Card monitor and pulse ox as needed. 2. Pantoprazole 40 mg IV twice daily IV fluid Type screen Each each every 6 hours Pantoprazole 40 mg IV every 12 hours Discussed with the patient and daughter on the risk and benefits of aspirin and Plavix treatment. Both patient and daughter agreed to hold aspirin and Plavix. I General surgeon Dr. Campbell is on board. Really appreciate it. As per Dr. Campbell who will probably do a colonoscopy tomorrow. 3. Aspirin and Lipitor are on hold due to GI bleeding. 4. Monitor blood pressure Continue IV fluid 5. DVT prophylaxis: SCD
[2021-01-29] MEDS ORDERED: hydrALAZINE 20 MG/ML SDV IVPUSH PRN (16:46)
[2021-01-29] MEDS: Pantoprazole 40 MG Vial IVPUSH SCH (18:24)
[2021-01-30] MEDS: Pantoprazole 40 MG Vial IVPUSH SCH (05:46)
[2021-01-30] MEDS: Sodium Chloride 0.9% 1,000 ML IV SCH (05:46)
[2021-01-30] MEDS ORDERED: Lactated Ringers 1,000 ML ONE (07:20)
[2021-01-30] MEDS ORDERED: fentaNYL 100 MCG/2 ML SDV ONE (07:20)
[2021-01-30] MEDS ORDERED: Propofol 200 MG/20 ML SDV ONE ×2 (07:21→08:47)
[2021-01-30] MEDS ORDERED: Lidocaine 1% 4 ML ONE (07:21)
--- NOTE | 2021-01-30 09:39 | PCM48HPAN ---
Post Anesthesia Note - EVALUATION WITHIN 48HRS OF ANESTHETIC Vital Signs in Normal Range: Yes Patient Participated in Evaluation: Yes Respiratory Function Stable: Yes Airway Patent: Yes Cardiovascular Function Stable: Yes Hydration Status Stable: Yes Pain Control Satisfactory: Yes Nausea and Vomiting Control Satisfactory: Yes Mental Status Recovered: Yes Vital Signs: Last Vital Signs Temp 37.0 C 01/30/21 07:45 Pulse 72 01/30/21 07:45 Resp 20 01/30/21 07:45 BP 130/80 01/30/21 07:45 Pulse Ox 98 01/30/21 07:45 0928 110/54 74 16 98%
--- NOTE | 2021-01-30 09:48 | PCM.OPNOTE ---
- General Post-Op/Procedure Note Date of Surgery/Procedure: 01/30/21 Operative Procedure(s): colonoscopy Findings: 1. Diffuse diverticula, severe in descending and sigmoid colon 2. Cecal polyp 3. Descending colon polyp Pre Op Diagnosis: GI bleed Post-Op Diagnosis: same Anesthesia Technique: MAC Primary Surgeon: Sweta Lazcano Anesthesia Provider: Janna Koehler Pathology: 1. Cecal polyp 2. Descending colon polyp Fluid Replacement, Intraop: 500 Output, Urine Amount: 0 EBL in mLs: 0 Complications: none apparent Condition: Good Free Text/Narrative:: Intake & Output 01/29/21 01/30/21 01/30/21 22:59 06:59 14:59 Intake Total 1194 658 Output Total 350 Balance 844 658
--- NOTE | 2021-01-30 09:49 | PCM.PRNOTE ---
- Free Text/Narrative Note: Operative Report Date of Surgery/Procedure: January 30, 2021 Operative Procedure: Colonoscopy to cecum Pre Op Diagnosis: GI bleed Post-Op Diagnosis: Same Surgeon: Sweta Lazcano MD Anesthesia Technique: MAC Anesthesia Provider: Janna Koehler CRNA IV Fluid Replacement, Intraop: 500cc Output, Urine Amount: 0cc EBL : 0cc Findings: 1. Diffuse diverticula, severe in descending and sigmoid colon 2. Cecal polyp 3. Descending colon polyp Specimens: 1. Cecal polyp 2. Descending colon polyp Indication: The patient is a 75 year-old gentleman who presented to the hospital with symptoms of GI bleeding. The patient had ongoing bleeding after admission requiring transfustion. We discussed the procedure of a colonoscopy including intervention as needed for bleeding. Risks of bleeding and perforation were discussed, the patient understood and wished to proceed. Written and consent was obtained Description of the procedure: The patient was brought to the endoscopy suite and placed in the left lateral decubitus position. Appropriate monitors were applied. The patient was given MAC anesthesia. An anorectal examination was performed, revealing no external abnormality. The scope was placed into the rectum and advanced to cecum with moderate difficulty requiring external abdominal pressure. The patients cecum was entered, and the ileocecal valve and appendiceal orifice were identified and normal. At this point, the scope was withdrawn, paying careful attention to the mucosa. The patient had adequate bowel prep, allowing for visualization of polyps 5mm or greater. Severe diverticulosis was noted throughout the colon, but worse in the descending and sigmoid colon. A 4mm polyp was seen in the cecum, and 3mm polyp in the descending colon; both were removed with a jumbo cold biopsy forceps. No active bleeding was noted in pamela colon.. In the rectum, the scope was retroflexed and no abnormalities were noted, except for some hemorrhoidal tissue. The scope was placed back in the lumen and the excess air was aspirated. The patient tolerated the procedure well. Complications: none apparent Condition: Good, transported to PACU in stable condition Sweta Lazcano MD General Surgery
--- NOTE | 2021-01-30 10:18 | PCM.CONSN ---
- General Info Date of Service: 01/30/21 Admission Dx/Problem (Free Text): Admission Diagnosis/Problem Admission Diagnosis/Problem GI bleed not requiring more than 4 units of blood in 24 hours, ICU, or surgery Subjective Update: Pt doing well. No further bleeding episodes, but did have a reaction to the platelet transfusion. No abdominal pain. - Patient Data Vitals - Most Recent: Last Vital Signs Temp 37.0 C 01/30/21 07:45 Pulse 72 01/30/21 07:45 Resp 20 01/30/21 07:45 BP 130/80 01/30/21 07:45 Pulse Ox 98 01/30/21 07:45 Orthostatic Blood Pressure [ 50/26 Standing] Orthostatic Blood Pressure [ 116/75 Sitting] Orthostatic Blood Pressure [ 128/97 Supine] Weight - Most Recent: 92.351 kg I&O - Last 24 Hours: Intake & Output 01/29/21 01/30/21 01/30/21 22:59 06:59 14:59 Intake Total 1194 658 500 Output Total 350 0 Balance 844 658 500 Lab Results Last 24 Hours: Laboratory Results - last 24 hr 01/29/21 01/29/21 01/29/21 Range/Units 12:12 12:12 19:10 WBC 11.54 H (4.23-9.07) K/mm3 RBC 3.95 L (4.63-6.08) M/mm3 Hgb 11.2 L D 11.5 L (13.7-17.5) gm/dl Hct 34.2 L 34.3 L (40.1-51.0) % MCV 86.8 (79.0-92.2) fl MCH 29.1 (25.7-32.2) pg MCHC 33.5 (32.2-35.5) g/dl RDW Std Deviation 44.9 H (35.1-43.9) fL Plt Count 192 (163-337) K/mm3 MPV 9.5 (9.4-12.3) fl Neut % (Auto) 96.5 H (34.0-67.9) % Lymph % (Auto) 2.4 L (21.8-53.1) % [place] % (Auto) 0.7 L (5.3-12.2) % Eos % (Auto) 0 L (0.8-7.0) Baso % (Auto) 0.1 (0.1-1.2) % Neut # (Auto) 11.14 H (1.78-5.38) K/mm3 Lymph # (Auto) 0.28 L (1.32-3.57) K/mm3 [place] # (Auto) 0.08 L (0.30-0.82) K/mm3 Eos # (Auto) 0.00 L (0.04-0.54) K/mm3 Baso # (Auto) 0.01 (0.01-0.08) K/mm3 Manual Slide Review Abnormal smear Sodium (136-145) mEq/L Potassium (3.5-5.1) mEq/L Chloride (98-107) mEq/L Carbon Dioxide (21-32) mEq/L Anion Gap (5-15) BUN (7-18) mg/dL Creatinine (0.7-1.3) mg/dL Est Cr Clr Drug Dosing mL/min Estimated GFR (MDRD) (>60) mL/min BUN/Creatinine Ratio (14-18) Glucose (83-115) mg/dL Calcium (8.5-10.1) mg/dL Magnesium (1.8-2.4) mg/dl Blood Type Gel Antibody Screen Tx Rx Implicated Unit 1 [id number] Unit 1 Component O positive Tx React Review Date 01/29 at 1315 Reaction Clerical Check Acceptable Pre-Trans Vis Hemolysis Negative Pre-Trans Icterus Negative Post-Trans Blood Type O positive Post-Tx Visible Hemolys Negative Post-Trans Icterus Negative Post-Trans TL IgG Negative Post-Trans TL Poly Negative Reaction Interpretation Reaction Pathol Review Dr. damon 01/30/21 01/30/21 01/30/21 Range/Units 00:55 06:27 06:27 WBC 7.26 (4.23-9.07) K/mm3 RBC 3.41 L (4.63-6.08) M/mm3 Hgb 9.8 L D (13.7-17.5) gm/dl Hct 29.6 L (40.1-51.0) % MCV 86.8 (79.0-92.2) fl MCH 28.7 (25.7-32.2) pg MCHC 33.1 (32.2-35.5) g/dl RDW Std Deviation 43.8 (35.1-43.9) fL Plt Count 168 (163-337) K/mm3 MPV 9.0 L (9.4-12.3) fl Neut % (Auto) 89.1 H (34.0-67.9) % Lymph % (Auto) 5.9 L (21.8-53.1) % [place] % (Auto) 4.8 L (5.3-12.2) % Eos % (Auto) 0 L (0.8-7.0) Baso % (Auto) 0.1 (0.1-1.2) % Neut # (Auto) 6.46 H (1.78-5.38) K/mm3 Lymph # (Auto) 0.43 L (1.32-3.57) K/mm3 [place] # (Auto) 0.35 (0.30-0.82) K/mm3 Eos # (Auto) 0.00 L (0.04-0.54) K/mm3 Baso # (Auto) 0.01 (0.01-0.08) K/mm3 Manual Slide Review Abnormal smear Sodium 144 (136-145) mEq/L Potassium 3.9 (3.5-5.1) mEq/L Chloride 112 H (98-107) mEq/L Carbon Dioxide 23 (21-32) mEq/L Anion Gap 12.9 (5-15) BUN 16 (7-18) mg/dL Creatinine 1.1 (0.7-1.3) mg/dL Est Cr Clr Drug Dosing 63.56 mL/min Estimated GFR (MDRD) > 60 (>60) mL/min BUN/Creatinine Ratio 14.5 (14-18) Glucose 103 (83-115) mg/dL Calcium 7.6 L (8.5-10.1) mg/dL Magnesium 2.1 (1.8-2.4) mg/dl Blood Type O POSITIVE Gel Antibody Screen Negative Tx Rx Implicated Unit 1 Unit 1 Component Tx React Review Date Reaction Clerical Check Pre-Trans Vis Hemolysis Pre-Trans Icterus Post-Trans Blood Type Post-Tx Visible Hemolys Post-Trans Icterus Post-Trans TL IgG Post-Trans TL Poly Reaction Interpretation Reaction Pathol Review 01/30/21 Range/Units 06:27 WBC 7.12 (4.23-9.07) K/mm3 RBC 3.08 L (4.63-6.08) M/mm3 Hgb 9.0 L (13.7-17.5) gm/dl Hct 26.9 L (40.1-51.0) % MCV 87.3 (79.0-92.2) fl MCH 29.2 (25.7-32.2) pg MCHC 33.5 (32.2-35.5) g/dl RDW Std Deviation 44.2 H (35.1-43.9) fL Plt Count 161 L (163-337) K/mm3 MPV 9.7 (9.4-12.3) fl Neut % (Auto) 82.8 H (34.0-67.9) % Lymph % (Auto) 8.7 L (21.8-53.1) % [place] % (Auto) 8.3 (5.3-12.2) % Eos % (Auto) 0 L (0.8-7.0) Baso % (Auto) 0.1 (0.1-1.2) % Neut # (Auto) 5.89 H (1.78-5.38) K/mm3 Lymph # (Auto) 0.62 L (1.32-3.57) K/mm3 [place] # (Auto) 0.59 (0.30-0.82) K/mm3 Eos # (Auto) 0.00 L (0.04-0.54) K/mm3 Baso # (Auto) 0.01 (0.01-0.08) K/mm3 Manual Slide Review Abnormal smear Sodium (136-145) mEq/L Potassium (3.5-5.1) mEq/L Chloride (98-107) mEq/L Carbon Dioxide (21-32) mEq/L Anion Gap (5-15) BUN (7-18) mg/dL Creatinine (0.7-1.3) mg/dL Est Cr Clr Drug Dosing mL/min Estimated GFR (MDRD) (>60) mL/min BUN/Creatinine Ratio (14-18) Glucose (83-115) mg/dL Calcium (8.5-10.1) mg/dL Magnesium (1.8-2.4) mg/dl Blood Type Gel Antibody Screen Tx Rx Implicated Unit 1 Unit 1 Component Tx React Review Date Reaction Clerical Check Pre-Trans Vis Hemolysis Pre-Trans Icterus Post-Trans Blood Type Post-Tx Visible Hemolys Post-Trans Icterus Post-Trans TL IgG Post-Trans TL Poly Reaction Interpretation Reaction Pathol Review Med Orders - Current: Current Medications Dexamethasone (Dexamethasone 4 Mg/Ml 5 Ml Mdv) 6 mg IV Q6H PRN PRN Reason: Hives Last Admin: 01/29/21 12:52 Dose: 6 mg Documented by: Hydralazine HCl (Hydralazine 20 Mg/Ml Sdv) 10 mg IVPUSH Q4H PRN PRN Reason: Hypertension Sodium Chloride (Normal Saline) 1,000 mls @ 65 mls/hr IV ASDIRECTED SENAIT Last Admin: 01/30/21 05:46 Dose: 65 mls/hr Documented by: Pantoprazole Sodium (Pantoprazole 40 Mg Vial) 40 mg IVPUSH Q12H SENAIT Last Admin: 01/30/21 05:46 Dose: 40 mg Documented by: Sodium Chloride (Sodium Chloride 0.9% 10 Ml Syringe) 10 ml FLUSH ASDIRECTED PRN PRN Reason: Keep Vein Open Last Admin: 01/28/21 12:05 Dose: 10 ml Documented by: Discontinued Medications Bisacodyl (Bisacodyl 5 Mg Tab) 20 mg PO ONETIME ONE Stop: 01/29/21 10:02 Last Admin: 01/29/21 10:47 Dose: 20 mg Documented by: Diphenhydramine HCl (Diphenhydramine 12.5 Mg/5 Ml Liquid 5 Ml Ud Cup) 12.5 mg PO BID ONE Stop: 01/29/21 12:21 Last Admin: 01/29/21 12:41 Dose: 12.5 mg Documented by: Fentanyl (Fentanyl 100 Mcg/2 Ml Sdv) Confirm Administered Dose 100 mcg .ROUTE .STK-MED ONE Stop: 01/30/21 07:21 Sodium Chloride (Normal Saline) 1,000 mls @ 999 mls/hr IV NOW STA Stop: 01/28/21 13:25 Last Admin: 01/28/21 12:38 Dose: 125 mls/hr Documented by: Sodium Chloride (Normal Saline) 1,000 mls @ 125 mls/hr IV NOW STA Stop: 01/28/21 21:49 Last Admin: 01/28/21 14:10 Dose: 125 mls/hr Documented by: Sodium Chloride (Normal Saline) 1,000 mls @ 250 mls/hr IV ONETIME ONE Stop: 01/28/21 18:55 Last Admin: 01/28/21 15:45 Dose: Not Given Documented by: Sodium Chloride (Normal Saline) 1,000 mls @ 150 mls/hr IV ASDIRECTED [facility] Last Admin: 01/28/21 20:59 Dose: 150 mls/hr Documented by: Sodium Chloride (Normal Saline) 250 mls @ 30 mls/hr IV ASDIRECTED [facility] Last Admin: 01/29/21 02:00 Dose: 30 mls/hr Documented by: Lactated Ringer's (Ringers, Lactated) Confirm Administered Dose 1,000 mls @ as directed .ROUTE .STK-MED ONE Stop: 01/30/21 07:21 Lidocaine HCl (Xylocaine-Mpf 1%) Confirm Administered Dose 4 mls @ as directed .ROUTE .STK-MED ONE Stop: 01/30/21 07:22 Miscellaneous Medication (Phenylephrine Hcl In 0.9% Nacl 1 Mg/10 Ml Syringe) Confirm Administered Dose 1 mg .ROUTE .STK-MED ONE Stop: 01/30/21 08:29 Polyethylene Glycol (Polyethylene Glycol 3350 Powder 17 Gm Packet) 255 gm PO ONETIME ONE Stop: 01/29/21 10:03 Last Admin: 01/29/21 11:50 Dose: Not Given Documented by: Polyethylene Glycol (Polyethylene Glycol 3350 Powder 17 Gm Packet) 255 gm PO ONETIME ONE Stop: 01/29/21 14:01 Last Admin: 01/29/21 14:17 Dose: 255 gm Documented by: Propofol (Propofol 200 Mg/20 Ml Sdv) Confirm Administered Dose 400 mg .ROUTE .STK-MED ONE Stop: 01/30/21 07:22 Propofol (Propofol 200 Mg/20 Ml Sdv) Confirm Administered Dose 200 mg .ROUTE .STK-MED ONE Stop: 01/30/21 08:48 - Exam Quality Assessment: No: Supplemental Oxygen General: Alert, Oriented HEENT: EOMI Lungs: Normal Respiratory Effort GI/Abdominal Exam: Soft, Non-Tender, No Distention Sepsis Event Note - Evaluation Sepsis Screening Result: No Definite Risk - Focused Exam Vital Signs: Vital Signs Temp Pulse Resp BP Pulse Ox 01/30/21 07:45 37.0 C 72 20 130/80 98 01/30/21 02:52 37.3 C 79 18 127/86 96 01/30/21 00:12 37.1 C 90 16 114/63 96 Consult PN Assessment/Plan (1) Hypotension due to blood loss SNOMED Code(s): 37414345 Code(s): I95.89 - OTHER HYPOTENSION Priority: Medium Current Visit: Yes Onset Date: ~01/28/21 Comment: b.p normal currently but orthostatic on presentation with dizziness and gunn. (2) Rectal hemorrhage SNOMED Code(s): 18999076 Code(s): K62.5 - HEMORRHAGE OF ANUS AND RECTUM Priority: High Current Visit: Yes Onset Date: ~01/28/21 Comment: initial e.r hgn 11.7 and gibven i.v x 2 liters for orthostsis and will repeat hgn every 4-6 hours. he would like to get home to [place]./s.p. and discussed stopping plavix and asa and observing next few days . consult gen surgery if bleeding continues. Problem List Initiated/Reviewed/Updated: Yes My Orders Last 24 Hours: My Active Orders 01/30/21 08:00 Schedule Procedure [COMM] Routine Plan: 75 y/o male with lower GI bleed - trend Hg every 4-6 hours - NPO for procedure - plan for colonoscopy today as planned - medical management per primary - will assess need for further stay based on the findings of colonoscopy Sweta Lazcano MD General surgery
--- NOTE | 2021-01-30 15:09 | PCM.DCSUM1 ---
Discharge Summary - Hospital Course Free Text/Narrative:: Patient is a 75-year-old male presenting to the emergency department for evaluation with regards to having 2 very large episodes of bright red bloody stool. Assessment: GI bleeding CAD, status post stenting 12 years ago Anemia of blood loss Hypotension due to blood loss Plan: 1. Continue to monitor in telemetry. Card monitor and pulse ox as needed. 2. Pantoprazole 40 mg IV twice daily IV fluid Type screen Each each every 6 hours Pantoprazole 40 mg IV every 12 hours Discussed with the patient and daughter on the risk and benefits of aspirin and Plavix treatment. Both patient and daughter agreed to hold aspirin and Plavix. I General surgeon Dr. Campbell is on board. Really appreciate it. colonoscopy performed today by Dr. Campbell - 1) Diffuse diverticula, severe in descending and sigmoid colon 2) Cecal polyp 3) Descending colon polyp Specimens: 1) Cecal polyp 2) Descending colon polyp No active bleeding. Dr. Campbell cleared to discharge this patient to home today to follow with the GI/general surgeon next week. 3. Aspirin and Lipitor are on hold due to GI bleeding. 4. Monitor blood pressure Continue IV fluid Today patient does not have any complaints. Denies headache, dizziness, nausea, vomiting, abdominal pain or dysuria. No more bleeding vital signs are stable and acceptable. Patient and family refused to go any facilities and the home health. Patient has been cleared by Dr. Campbell to be discharged to home today. He will be discharged home today to follow with PCP in 3 days, customer support associate and GI/general surgeon within 1 week. Aspirin and Lipitor are still on hold. Patient needs to discuss with PCP and GI/general s urgeon when aspirin and Eliquis should be restarted. Repeat blood tests a CBC, CMP, and a electrolytes in [address] until approval from MD. Call PCP for medical issues. Diagnosis: Stroke: No - Discharge Data Discharge Date: 01/30/21 Discharge Disposition: Home, Self-Care 01 Condition: Fair - Referral to Home Health Primary Care Physician: PCP Not In Area - Patient Summary/Data Operative Procedure(s) Performed: colonoscopy Consults: Consultations 01/28/21 14:43 Consult to Case Management/Community Placement Worker [CONS] Routine 01/28/21 15:21 Consult to Physician [CONS] Routine Labs Pending at D/C: Pathology biopsy Recommended Follow-up Testing/Procedures: follow with PCP in 3 days, customer support associate and GI/general surgeon within 1 week. Aspirin and Lipitor are still on hold. Patient needs to discuss with PCP and GI/general surgeon when aspirin and Eliquis should be restarted. Repeat blood tests a CBC, CMP, and a electrolytes in [address] until approval from MD. Call PCP for medical issues. - Patient Instructions Diet: Usual Diet as Tolerated (with high fibers) Activity: As Tolerated Driving: Do Not Drive - Discharge Plan *PRESCRIPTION DRUG MONITORING PROGRAM REVIEWED*: Not Applicable *COPY OF PRESCRIPTION DRUG MONITORING REPORT IN PATIENT NGUYỄN: Not Applicable Prescriptions/Med Rec: atorvaSTATin Calcium [Lipitor] 40 mg PO DAILY #30 tablet Pantoprazole [ProTONIX] 40 mg PO DAILY #30 tab.cr Home Medications: Home Meds Losartan Potassium 50 mg PO BEDTIME 01/28/21 [History] Nitroglycerin [Nitrostat] 0.4 mg SL ASDIRECTED PRN 01/28/21 [History] Pantoprazole [ProTONIX] 40 mg PO DAILY #30 tab.cr 01/30/21 [Rx] atorvaSTATin Calcium [Lipitor] 40 mg PO DAILY #30 tablet 01/30/21 [Rx] Forms: ED Department Discharge Referrals: GI/general surgeon, within one week [Other] cardiology, within one week. [Other] PCP,Not In Area [Primary Care Provider] - (in 3 days) - Discharge Summary/Plan Comment DC Time >30 min.: Yes - General Info Date of Service: 01/30/21 Admission Dx/Problem (Free Text: Admission Diagnosis/Problem Admission Diagnosis/Problem GI bleed not requiring more than 4 units of blood in 24 hours, ICU, or surgery Subjective Update: Pt doing well. No further bleeding episodes. No abdominal pain. - Review of Systems General: Reports: No Symptoms HEENT: Reports: No Symptoms Pulmonary: Reports: No Symptoms Cardiovascular: Reports: No Symptoms Gastrointestinal: Reports: No Symptoms Genitourinary: Reports: No Symptoms Musculoskeletal: Reports: No Symptoms Skin: Reports: No Symptoms Neurological: Reports: No Symptoms Psychiatric: Reports: No Symptoms - Patient Data Vitals - Most Recent: Last Vital Signs Temp 37.0 C 01/30/21 07:45 Pulse 71 01/30/21 13:02 Resp 20 01/30/21 07:45 BP 135/75 04/25/21 13:02 Pulse Ox 96 01/30/21 13:02 Orthostatic Blood Pressure [ 50/26 Standing] Orthostatic Blood Pressure [ 116/75 Sitting] Orthostatic Blood Pressure [ 128/97 Supine] Weight - Most Recent: 92.351 kg I&O - Last 24 hours: Intake & Output 01/30/21 01/30/21 01/30/21 06:59 14:59 22:59 Intake Total 658 500 Output Total 0 Balance 658 500 Lab Results - Last 24 hrs: Laboratory Results - last 24 hr 01/29/21 01/30/21 01/30/21 Range/Units 19:10 00:55 06:27 WBC 11.54 H 7.26 (4.23-9.07) K/mm3 RBC 3.95 L 3.41 L (4.63-6.08) M/mm3 Hgb 11.5 L 9.8 L D (13.7-17.5) gm/dl Hct 34.3 L 29.6 L (40.1-51.0) % MCV 86.8 86.8 (79.0-92.2) fl MCH 29.1 28.7 (25.7-32.2) pg MCHC 33.5 33.1 (32.2-35.5) g/dl RDW Std Deviation 44.9 H 43.8 (35.1-43.9) fL Plt Count 192 168 (163-337) K/mm3 MPV 9.5 9.0 L (9.4-12.3) fl Neut % (Auto) 96.5 H 89.1 H (34.0-67.9) % Lymph % (Auto) 2.4 L 5.9 L (21.8-53.1) % [place] % (Auto) 0.7 L 4.8 L (5.3-12.2) % Eos % (Auto) 0 L 0 L (0.8-7.0) Baso % (Auto) 0.1 0.1 (0.1-1.2) % Neut # (Auto) 11.14 H 6.46 H (1.78-5.38) K/mm3 Lymph # (Auto) 0.28 L 0.43 L (1.32-3.57) K/mm3 [place] # (Auto) 0.08 L 0.35 (0.30-0.82) K/mm3 Eos # (Auto) 0.00 L 0.00 L (0.04-0.54) K/mm3 Baso # (Auto) 0.01 0.01 (0.01-0.08) K/mm3 Manual Slide Review Abnormal smear Abnormal smear Sodium 144 (136-145) mEq/L Potassium 3.9 (3.5-5.1) mEq/L Chloride 112 H (98-107) mEq/L Carbon Dioxide 23 (21-32) mEq/L Anion Gap 12.9 (5-15) BUN 16 (7-18) mg/dL Creatinine 1.1 (0.7-1.3) mg/dL Est Cr Clr Drug Dosing 63.56 mL/min Estimated GFR (MDRD) > 60 (>60) mL/min BUN/Creatinine Ratio 14.5 (14-18) Glucose 103 (83-115) mg/dL Calcium 7.6 L (8.5-10.1) mg/dL Magnesium 2.1 (1.8-2.4) mg/dl Blood Type Gel Antibody Screen 01/30/21 01/30/21 Range/Units 06:27 06:27 WBC 7.12 (4.23-9.07) K/mm3 RBC 3.08 L (4.63-6.08) M/mm3 Hgb 9.0 L (13.7-17.5) gm/dl Hct 26.9 L (40.1-51.0) % MCV 87.3 (79.0-92.2) fl MCH 29.2 (25.7-32.2) pg MCHC 33.5 (32.2-35.5) g/dl RDW Std Deviation 44.2 H (35.1-43.9) fL Plt Count 161 L (163-337) K/mm3 MPV 9.7 (9.4-12.3) fl Neut % (Auto) 82.8 H (34.0-67.9) % Lymph % (Auto) 8.7 L (21.8-53.1) % [place] % (Auto) 8.3 (5.3-12.2) % Eos % (Auto) 0 L (0.8-7.0) Baso % (Auto) 0.1 (0.1-1.2) % Neut # (Auto) 5.89 H (1.78-5.38) K/mm3 Lymph # (Auto) 0.62 L (1.32-3.57) K/mm3 [place] # (Auto) 0.59 (0.30-0.82) K/mm3 Eos # (Auto) 0.00 L (0.04-0.54) K/mm3 Baso # (Auto) 0.01 (0.01-0.08) K/mm3 Manual Slide Review Abnormal smear Sodium (136-145) mEq/L Potassium (3.5-5.1) mEq/L Chloride (98-107) mEq/L Carbon Dioxide (21-32) mEq/L Anion Gap (5-15) BUN (7-18) mg/dL Creatinine (0.7-1.3) mg/dL Est Cr Clr Drug Dosing mL/min Estimated GFR (MDRD) (>60) mL/min BUN/Creatinine Ratio (14-18) Glucose (83-115) mg/dL Calcium (8.5-10.1) mg/dL Magnesium (1.8-2.4) mg/dl Blood Type O POSITIVE Gel Antibody Screen Negative Med Orders - Current: Current Medications Dexamethasone (Dexamethasone 4 Mg/Ml 5 Ml Mdv) 6 mg IV Q6H PRN PRN Reason: Hives Last Admin: 01/29/21 12:52 Dose: 6 mg Documented by: Hydralazine HCl (Hydralazine 20 Mg/Ml Sdv) 10 mg IVPUSH Q4H PRN PRN Reason: Hypertension Sodium Chloride (Normal Saline) 1,000 mls @ 65 mls/hr IV ASDIRECTED SENA[facility] Last Admin: 01/30/21 05:46 Dose: 65 mls/hr Documented by: Pantoprazole Sodium (Pantoprazole 40 Mg Vial) 40 mg IVPUSH Q12H SENAIT Last Admin: 01/30/21 05:46 Dose: 40 mg Documented by: Sodium Chloride (Sodium Chloride 0.9% 10 Ml Syringe) 10 ml FLUSH ASDIRECTED PRN PRN Reason: Keep Vein Open Last Admin: 01/28/21 12:05 Dose: 10 ml Documented by: Discontinued Medications Bisacodyl (Bisacodyl 5 Mg Tab) 20 mg PO ONETIME ONE Stop: 01/29/21 10:02 Last Admin: 01/29/21 10:47 Dose: 20 mg Documented by: Diphenhydramine HCl (Diphenhydramine 12.5 Mg/5 Ml Liquid 5 Ml Ud Cup) 12.5 mg PO BID ONE Stop: 01/29/21 12:21 Last Admin: 01/29/21 12:41 Dose: 12.5 mg Documented by: Fentanyl (Fentanyl 100 Mcg/2 Ml Sdv) Confirm Administered Dose 100 mcg .ROUTE .STK-MED ONE Stop: 01/30/21 07:21 Sodium Chloride (Normal Saline) 1,000 mls @ 999 mls/hr IV NOW STA Stop: 01/28/21 13:25 Last Admin: 01/28/21 12:38 Dose: 125 mls/hr Documented by: Sodium Chloride (Normal Saline) 1,000 mls @ 125 mls/hr IV NOW STA Stop: 01/28/21 21:49 Last Admin: 01/28/21 14:10 Dose: 125 mls/hr Documented by: Sodium Chloride (Normal Saline) 1,000 mls @ 250 mls/hr IV ONETIME ONE Stop: 01/28/21 18:55 Last Admin: 01/28/21 15:45 Dose: Not Given Documented by: Sodium Chloride (Normal Saline) 1,000 mls @ 150 mls/hr IV ASDIRECTED [facility] Last Admin: 01/28/21 20:59 Dose: 150 mls/hr Documented by: Sodium Chloride (Normal Saline) 250 mls @ 30 mls/hr IV ASDIRECTED [facility] Last Admin: 01/29/21 02:00 Dose: 30 mls/hr Documented by: Lactated Ringer's (Ringers, Lactated) Confirm Administered Dose 1,000 mls @ as directed .ROUTE .STK-MED ONE Stop: 01/30/21 07:21 Lidocaine HCl (Xylocaine-Mpf 1%) Confirm Administered Dose 4 mls @ as directed .ROUTE .STK-MED ONE Stop: 01/30/21 07:22 Miscellaneous Medication (Phenylephrine Hcl In 0.9% Nacl 1 Mg/10 Ml Syringe) Confirm Administered Dose 1 mg .ROUTE .STK-MED ONE Stop: 01/30/21 08:29 Polyethylene Glycol (Polyethylene Glycol 3350 Powder 17 Gm Packet) 255 gm PO ONETIME ONE Stop: 01/29/21 10:03 Last Admin: 01/29/21 11:50 Dose: Not Given Documented by: Polyethylene Glycol (Polyethylene Glycol 3350 Powder 17 Gm Packet) 255 gm PO ONETIME ONE Stop: 01/29/21 14:01 Last Admin: 01/29/21 14:17 Dose: 255 gm Documented by: Propofol (Propofol 200 Mg/20 Ml Sdv) Confirm Administered Dose 400 mg .ROUTE .STK-MED ONE Stop: 01/30/21 07:22 Propofol (Propofol 200 Mg/20 Ml Sdv) Confirm Administered Dose 200 mg .ROUTE .STK-MED ONE Stop: 01/30/21 08:48 - Exam Physical Findings Comments:: General: Alert, Oriented HEENT: EOMI Neck: Supple Lungs: Normal Respiratory Effort GI/Abdominal Exam: Soft, Non-Tender, No Distention Extremities: Normal Inspection, No Pedal Edema Peripheral Pulses: 2+: Dorsalis Pedis (L), Dorsalis Pedis (R) Neurological: Cranial Nerves Intact Neuro Extensive - Mental Status: Normal Mood/Affect
== END 2021-01-30 16:44 | disposition home or self-care (01) | DRG 379 ==
LOC: JD.ED 11:36 → JD.MS 13:41
PROVIDERS: ADMIT Pediatrics; ATTEND Pediatrics
PROC: 30233N1 Transfusion of Nonautologous Red Blood Cells into Peripheral Vein, Percutaneous Approach (ICD-10-PCS; principal; 2021-01-29)
PROC: 0DBH8ZX Excision of Cecum, Via Natural or Artificial Opening Endoscopic, Diagnostic (ICD-10-PCS; 2021-01-30)
PROC: 0DBM8ZX Excision of Descending Colon, Via Natural or Artificial Opening Endoscopic, Diagnostic (ICD-10-PCS; 2021-01-30)
DX: K92.1 Melena (principal); K57.31 Diverticulosis of large intestine without perforation or abscess with bleeding; K57.90 Diverticulosis of intestine, part unspecified, without perforation or abscess without bleeding; D50.0 Iron deficiency anemia secondary to blood loss (chronic); K63.5 Polyp of colon; M19.90 Unspecified osteoarthritis, unspecified site; I95.89 Other hypotension; I25.83 Coronary atherosclerosis due to lipid rich plaque; Z20.822 Contact with and (suspected) exposure to COVID-19; Z95.5 Presence of coronary angioplasty implant and graft; Z79.899 Other long term (current) drug therapy; Z79.82 Long term (current) use of aspirin; Z79.02 Long term (current) use of antithrombotics/antiplatelets; I25.2 Old myocardial infarction
CPT/HCPCS: 36415; 80053; 84484; 85025; 85610; 85730; 86140; 86850; 86900; 86901; 86922; 93005; J7030; U0002; 00811; 36430; 71045; 71045-26; 80048; 81001; 83735; 85014; 85018; 88305; 93010; 99100; 99284; 99285-25; A9270-GY; C9113; J1100; J2370; J2704; J3010; J7050; J7120; P9016; P9017